=== PATIENT | female | born 1950 | race Caucasian/White ===

== ENCOUNTER 2022-05-27 11:56 | Outpatient (CLI) | payer MEDICARE, OTHER, SELFPAY ==
--- NOTE | 2022-05-27 10:45 | DI.RAD_ITS ---
Exam(s) XR KNEE LT 3V AP,LAT,NANCY EXAM: XR KNEE LT 3V AP,LAT,NANCY CLINICAL HISTORY: L knee pain. TECHNIQUE: 2D digital imaging was performed of the left knee. Four images were obtained. Merchant, AP, lateral and PA tunnel views were obtained. COMPARISON: No exams were available for comparison FINDINGS: BONES: No acute fracture is present. No bony destructive lesion is seen. There is an enthesophyte at the superior patella. JOINTS: There is moderate narrowing of the medial femoral tibial joint and mild narrowing of the arana llofemoral joint. There is tricompartment periarticular spurring present. No joint effusion is seen . SOFT TISSUE: Normal. IMPRESSION: There are moderate degenerative changes of the left knee. DATA REPOSITORY: RADIATION DOSE DELIVERED:
--- NOTE | 2022-05-27 11:25 | DI.RAD_ITS ---
Exam(s) XR HIP LT COMPLETE AP PELVIS EXAM: XR HIP LT COMPLETE AP PELVIS CLINICAL HISTORY: L hip pain. TECHNIQUE: 2D digital imaging was performed of the left hip. Two views were obtained. AP pelvis an d lateral left hip views were obtained. COMPARISON: CR Hip - 2 Views from 12/13/2016 FINDINGS: BONES: No acute fracture is present. No bony destructive lesion is seen. JOINTS: The patient has a prior right total hip replacement. There are advanced degenerative changes of the left hip which has progressed since 12/13/2016. There is loss of the superior joint space. S ubchondral sclerosis and cysts are seen across the joint. Hypertrophic changes are seen at the aceta bulum. SOFT TISSUE: Normal. IMPRESSION: Advanced degenerative changes of the left hip which have progressed since 2017. DATA REPOSITORY: RADIATION DOSE DELIVERED:
== END 2022-05-27 11:57 | disposition home or self-care (01) ==
LOC: DIORS 11:57
PROVIDERS: PCP Nurse Practitioner; Referring Provider Nurse Practitioner; Visit Provider Physician Assistant
DX: M17.12 Unilateral primary osteoarthritis, left knee (principal); M16.12 Unilateral primary osteoarthritis, left hip
CPT/HCPCS: 20610; 73562; 99203; 73502; J1040

== ENCOUNTER 2022-06-02 03:10 | Outpatient (CLI) | payer MEDICARE, OTHER, SELFPAY ==
[2022-06-02 11:41] LABS: HCT 36.8 % (36.0-46.0); HGB 12.8 g/dL (11.2-15.7); MCH 32.6 pg (27.0-33.0); MCHC 34.8 % (32.0-36.0); MCV 94 fL (80-95); MPV 7.7 fL (8.0-11.0); Platelet Count 195 10^3/uL (130-400); RBC 3.93 10^6/uL (3.93-5.22); RDW 11.2 % (11.7-14.6); RDW-SD 38.1 fL; WBC 9.12 10^3/uL (4.4-10.8)
[2022-06-02 12:02] LABS: Anion Gap 1.4 mmol/L (3-11); BUN 37 mg/dL (7-18); CO2 29.6 mmol/L (21.0-32.0); CREATININE 1.3 mg/dL (0.55-1.02); Calcium 9.8 mg/dL (8.5-10.1); Chloride 97 mmol/L (98-107); Estimated GFR 44.24 (mL/min/1.73m2); Glucose 92 mg/dL (74-106); Potassium 4.1 mmol/L (3.5-5.1); Sodium 128 mmol/L (136-145)
== END 2022-06-02 03:11 | disposition home or self-care (01) ==
PROVIDERS: PCP Nurse Practitioner; Visit Provider Student in an Organized Health Care Education/Training Program
DX: M25.552 Pain in left hip (principal); M16.12 Unilateral primary osteoarthritis, left hip; Z01.818 Encounter for other preprocedural examination; Z01.812 Encounter for preprocedural laboratory examination
CPT/HCPCS: 36415; 80048; 85027

== ENCOUNTER 2022-06-08 08:53 | Day surgery (SDC) | payer MEDICARE, OTHER, SELFPAY ==
--- NOTE | 2022-06-07 16:08 | W.ANESPRE ---
General Info Date of Service Date Performed: 06/08/22 Height: 5 ft 3 in Weight: 80 kg Body Mass Index (BMI): 31.2 Surgical Procedure: Operation Date: 06/08/22 11:35 Proposed Procedure Side Surgeon p Hip Total Hip Anterior, Corail Short Neck 01/23 Left Shaun Alves MD Meds Allergies and Home Medications Allergies Allergy/AdvReac Type Severity Reaction Status Date / Time No Known Drug Allergies Allergy Unverified 06/08/22 09:23 Home Medication Medication Instructions Recorded lisinopril 20 1 tab DAILY 12/04/15 mg-hydrochlorothiazide 12.5 mg tablet acetaminophen 500 mg tablet (Mapap 1,000 mg PO TID #180 tabs 12/11/15 Extra Strength) loperamide 2 mg capsule 1 cap PO PRN PRN 12/23/15 lovastatin 20 mg tablet 20 mg PO HS 03/10/22 aspirin 81 mg tablet,delayed 81 mg PO DAILY 06/07/22 release Current Visit Medications: Current Medications Generic Name Dose Route Start Last Admin Trade Name Jeanq PRN Reason Stop Dose Admin Acetaminophen 1,000 mg 06/08/22 06:00 Acetaminophen 500 Mg Tab PO 06/08/22 16:00 PREOP LIZA Celecoxib 400 mg 06/08/22 06:00 Celecoxib 200 Mg Cap PO 06/08/22 16:00 PREOP LIZA Tranexamic Acid 1,000 mg/ 60 mls @ 360 mls/hr 06/08/22 06:00 Sodium Chloride IV 06/08/22 16:00 PREOP LIZA Ringer's Solution 1,000 mls @ 80 mls/hr 06/08/22 06:00 IV 07/07/22 23:59 INFUSION LIZA Cefazolin Sodium/Dextrose 2 gm in 50 mls @ 100 mls/hr 06/08/22 06:00 Ancef Duplex IVPB 06/08/22 16:00 PREOP LIZA IV Miscellaneous Supplies 1 each 06/08/22 06:00 Iv Access IV 07/07/22 23:59 DIRECTED LIZA Sodium Chloride 0 ml 06/08/22 06:00 Normal Saline Flush 10 Ml Syr IV 07/07/22 23:59 PRN PRN Sodium Chloride 0 ml 06/08/22 06:00 Normal Saline 10 Ml Vial IJ 07/07/22 23:59 DIRECTED PRN Sterile Water 0 ml 06/08/22 06:00 Water,Injection,Sterile 10 Ml Vial IJ 07/07/22 23:59 DIRECTED PRN PFSH Active Problems Active Problems: Problem Status Onset Code Primary osteoarthritis of left hip M16.12 Osteoarthritis of left knee M17.12 Mixed hyperlipidemia E78.2 Benign essential hypertension I10 Acute blood loss as cause of postoperative anemia D62 Medical History Medical History Annular psoriasis Primary osteoarthritis of right hip (01/09/16) Surgical History Surgical History History of cataract surgery History of colonoscopy History of total right hip replacement Tobacco Smoking/Tobacco Use Status: Former Tobacco Use Substance Use Substance use: Never Substance use type: does not use Vital Signs and Lab Results Vital Signs Most Recent Vital Signs in EMR: Temp Pulse Resp BP Pulse Ox 36.4 C L 78 16 165/69 H 96 06/08/22 09:00 06/08/22 09:00 06/08/22 09:00 06/08/22 09:00 06/08/22 09:00 Lab Results Blood Type / Crossmatch: No Data to Display Complete Blood Count: White Blood Count 9.12 10^3/uL (4.4-10.8) 06/02/22 11:30 Red Blood Count 3.93 10^6/uL (3.93-5.22) 06/02/22 11:30 Hemoglobin 12.8 g/dL (11.2-15.7) 06/02/22 11:30 Hematocrit 36.8 % (36.0-46.0) 06/02/22 11:30 Platelet Count 195 10^3/uL (130-400) 06/02/22 11:30 Complete Metabolic Panel: Sodium 128 mmol/L (136-145) L 06/02/22 11:30 Potassium 4.1 mmol/L (3.5-5.1) 06/02/22 11:30 Chloride 97 mmol/L (98-107) L 06/02/22 11:30 Carbon Dioxide 29.6 mmol/L (21.0-32.0) 06/02/22 11:30 BUN 37 mg/dL (7-18) H 06/02/22 11:30 Creatinine 1.3 mg/dL (0.55-1.02) H 06/02/22 11:30 Est GFR (CKD-EPI 2020) 44.24 (mL/min/1.73m2) 06/02/22 11:30 Calcium 9.8 mg/dL (8.5-10.1) 06/02/22 11:30 Glucose 92 mg/dL (74-106) 06/02/22 11:30 Liver Function Panel: No Data to Display Coagulation Panel: No Data to Display Cardiac Panel: No Data to Display Arterial Blood Gas: No Data to Display Venous Blood Gas: No Data to Display Pancreas Panel: No Data to Display Thyroid Panel: No Data to Display Infectious Disease: No Data to Display Blood Cultures: No Data to Display Toxicology Panel: No Data to Display Anesthesia Assessment and Plan Anesthesia History Personal History: No History of Anesthesia Complications Family History: No Family History of Anesthesia Complications Exercise Tolerance Exercise Tolerance: Metabolic Equivalents>4 Cardiac & Pulmonary Exam Cardiac Exam: Normal S1/S2 Heart Sounds Pulmonary Exam: Clear Bilateral Breath Sounds Implantable Cardiac Device Does patient have a Pacemaker or an ICD?: No Airway Exam Known Difficult Airway: No Mallampati Class: 1 Mouth Opening: Normal (> 3cm) Thyromental Distance: Greater than 3 cm Neck Range of Motion: Limited ROM Neck Circumference: Normal Teeth Condition: Normal Dentition ASA Classification ASA Score: ASA 2 Emergency Case?: No NPO Status NPO Status: NPO Clears >2 hours, Solids >8 hours Anesthesia Plan Resuscitation Status: Full Code Anesthesia Technique: Spinal Anesthesia Airway Planned: Natural Airway Monitors Used: Standard Monitors Preoperative Comments:: 71 yo female with OA for NATALIE. Sig PMHx: HTN (lisinopril, HCTZ), former smoker, denies major. Previous Anes: - NATALIE 2016: spinal with 2.5 mL 0.5% bup, prop infusion. required frequent phenyl boluses (totaling 100 mcg), a gtt was eventually started, glyco (unclear reason), brief ketamine infusion, 1 unit of PRBCs, EBL 1000 mL. Plan: preop cocktail (ordered by surgeon), spinal. Would like preop midaz
[2022-06-08] VITALS (9 sets, daily range): BP systolic 102–165; BP diastolic 33–72; PULSE 56–78; RESP 12–18; TEMP 35.9–36.4; O2SAT 96–99; BMI 31.2
[2022-06-08] MEDS: Celecoxib 200 MG CAP 400 MG PO (09:29)
[2022-06-08] MEDS: Acetaminophen 500 MG TAB 1000 MG PO (09:30)
--- NOTE | 2022-06-08 09:30 | DI.RAD_ITS ---
Exam(s) XR HIP LT IN OR EXAM: XR HIP LT IN OR CLINICAL HISTORY: TOTAL HIP. TECHNIQUE: 2D digital imaging was performed. COMPARISON: No exams were available for comparison FINDINGS: Fluoroscopy provided during left hip arthroplasty. Please see procedure report for details. Radiation exposure index: Erasmor= 2.9390mGY IMPRESSION: DATA REPOSITORY: RADIATION DOSE DELIVERED:
[2022-06-08] MEDS: Lactated Ringers 1,000 ML 80 ML IV (09:58)
[2022-06-08] MEDS: ceFAZolin 2 GM/50 ML BAG IVPB (11:03)
--- NOTE | 2022-06-08 12:16 | DSE_ITS ---
Date of service: 06/08/22 Time of Service: 12:16 DS: Diagnosis Discharge Diagnosis (1) Primary osteoarthritis of left hip: Status: Acute Discharge Plan Disposition Patient Disposition: Home Condition: Good Discharge Details Reason For Visit: Kalpana Hip Arthritis Attending Provider: Shaun Alves Primary Care Provider: Jalen Barbour Home Meds and New Rx's Prescriptions: New celecoxib 200 mg capsule 200 mg PO BID PRN (Reason: pain) Qty: 60 1RF aspirin 81 mg tablet,delayed release (DR/EC) 81 mg PO BID Qty: 60 0RF acetaminophen 500 mg tablet 1,000 mg PO Q8H PRN (Reason: pain) Qty: 90 3RF pantoprazole 40 mg tablet,delayed release (DR/EC) 40 mg PO DAILY Qty: 30 0RF oxycodone 5 mg tablet 5 mg PO Q6H PRN (Reason: Pain) Qty: 8 0RF Continued lovastatin 20 mg tablet 20 mg PO HS lisinopril-hydrochlorothiazide 1 EACH tablet 1 tab DAILY loperamide 2 MG capsule 1 cap PO PRN PRN Discontinued acetaminophen [Mapap Extra Strength] 500 MG tablet 1,000 mg PO TID Qty: 180 0RF aspirin [Aspir-81] 81 mg Tablet,Delayed Release (Dr/Ec) 81 mg PO DAILY Discharge Instructions Additional Instructions: Total Hip Discharge Instructions Activity: The most important activity is to walk. You should try to take short walks a few times a day. You have no restrictions on movement or positioning, but do not try to force what you do. You will find some stiffness and weakness with hip flexion (lifting your knee). Do not try to strengthen this too early, continue to practice walking and stairs and this will come. - Outpatient physical therapy can be helpful to help return you to a normal gait and improve your flexibility and strength. This can start around 2 weeks. For some patients, it?s not necessary. Usually this is determined at the time of discharge or at the first post-operative visit. - You should wear the SANTOS hose on both legs for 2 weeks. Dressing: Keep the surgical dressing in place for at least one week. After the first week it may be removed and replace with light gauze and tape or nothing. It may get wet after 3 days but avoid soaking the dressing. If it gets wet, just lightly pat dry. It is important to always keep some gauze between skin folds, especially when you are sitting. Spend some time with the wound exposed when you are lying flat as the incision does wrinkle onto itself. Medications: - You should take Tylenol and an anti-inflammatory Celebrex as your primary pain control medications. If the Celebrex is too expensive or not covered, please call the office for another alternative (Advil/Ibuprofen or Naproxen/Aleve). - You have been prescribed a stronger pain medication Oxycodone for breakthrough pain, take as needed as prescribed. - You have also been prescribed a stomach acid reduction agent Pantoprozole to help reduce stomach acid and reflux. - You will be taking Aspirin 81mg twice a day for DVT prevention unless instructed otherwise. - If you have constipation you should take Colace or Miralax (both [id number]). It takes most people 3-4 days to have a bowel movement. Follow-up: 2 weeks If you have any acute concerns or questions, please do not hesitate to contact the office at [phone]. You may contact Dr. Alves with any questions after hours through the hospital at [phone] or on his cell phone at [phone]. Stand Alone Forms: Anesthesia Discharge Inst., Brittany Quiroz (U) Referrals: Shaun Alves MD [ [facility] STAFF PHYSICIAN] - Equipment/Supplies: Walker Activity:: Activity as Tolerated Remove Dressings/Wound Care:: Do Not Remove Shower/Bathe:: Cover Diet:: As Tolerated Discharge Orders Discharge Orders: Discharge Order (Routine); Ordered 06/08/22 Ordered By: Shaun Alves Discharge Data Discharge Date/Time-TO BE ENTERED AT DEPARTURE: 06/08/22 15:05 DS: Summary Time Spent with Patient providing and/or coordinating discharge services: Less than 30 minutes Status at Discharge Functional status at discharge: uses cane/walker Overall status at discharge: patient is progressing back to baseline Mental Status: mental status grossly normal Speech and Movement: speech and movement normal Mood: congruent mood Affect: normal affect Exam Psych Mental Status: mental status grossly normal Speech and Movement: speech and movement normal Mood: congruent mood Affect: normal affect DS: Data Vitals/I&O Vitals and I&O: Vital Signs Temperature 36.4 C L 06/08/22 09:00 Pulse 78 06/08/22 09:00 Pulse Rhythm Regular 06/08/22 09:00 Respiratory Rate 16 06/08/22 09:00 Respiratory Depth Deep 06/08/22 09:00 Blood Pressure 165/69 H 06/08/22 09:00 Pulse Oximetry 96 06/08/22 09:00 Oxygen Delivery Method Room Air 06/08/22 09:00 Oxygen Flow Rate 0 06/08/22 09:00 Pain Level 7 06/08/22 09:00 Intake & Output 06/07/22 06/08/22 06/08/22 23:59 11:59 23:59 Intake Total 110 / 110 Balance 110 / 110 Weight 80 kg Intake: IV 110 / 110 PFSH All Active Problems (Updated 06/08/22 @ 12:17 by Shaun Alves MD) Primary osteoarthritis of left hip (Acute) s/p Anterior L NATALIE (06/08/22) Osteoarthritis of left knee (Acute) DEPO MEDROL: 05/27/2022 Mixed hyperlipidemia (Acute) Benign essential hypertension (Acute) Acute blood loss as cause of postoperative anemia (Acute) Medical History (Updated 06/08/22 @ 12:17 by Shaun Alves MD) Annular psoriasis Primary osteoarthritis of right hip (01/09/16) Surgical History History of cataract surgery History of colonoscopy History of total right hip replacement Social History Smoking/Tobacco Use Status: Former Tobacco Use Smoking risk assessment performed?: Yes Drug use: Never Substance use type: does not use Do you feel safe at home: Yes Do you feel safe in your relationship?: Yes Time Spent with Patient Time Spent with Patient: <45 minutes Time was spent: preparing to see the patient(eg.review tests) and ordering medications,tests, procedures
--- NOTE | 2022-06-08 13:02 | W.ANESPOSTOP ---
Postoperative Evaluation Date, Time and Location Date Performed: 06/08/22 Time Performed: 13:02 Patient Location: PACU Vital Signs Most Recent Imported Vital Signs: Most Recent Vital Signs Temp Pulse Resp BP Pulse Ox 36.0 C L 58 L 15 142/59 H 99 06/08/22 12:46 06/08/22 12:46 06/08/22 12:46 06/08/22 12:46 06/08/22 12:46 Pain Score Most Recent Pain Score: Most Recent Pain Score Pain Level 0 06/08/22 12:46 Assessment Mental Status: Awake (Alert & Oriented to Patient Baseline) Airway and Respiratory Function: Patent airway with normal (patient baseline) respiratory exam Cardiovascular Function: Hemodynamically Stable Hydration Status: Adequately Hydrated Nausea & Vomiting: No Nausea or Vomiting Pain: Pt. Denies Any Pain Peripheral Nerve Block: Patient did not receive a nerve block Postoperative Comments:: Spinal waning (able to lift legs off bed), on small amount of phenyl (almost off).
--- NOTE | 2022-06-08 13:40 | PT.INIE ---
Date of service: 06/08/22 Time of Service: 13:40 PT Notes Visit Reasons: L Hip Arthritis Physical Therapy Day Surgery Initial Evaluation Date: 06/08/2022 Referring Doctor: Shaun Alves MD PT Orders: PT CONSULT: S/P Ortho Surgery Precautions: WBAT on the left LE with AD. Patient Profile/Admitting Diagnosis: Antonia is a 71-year-old female with primary osteoarthritis of the left hip and is status post left anterior total hip arthroplasty on postoperative day 0. PMHX: All Active Problems?(Updated 05/28/22 @ 13:07 by BROOKLYN Feliciano) Primary osteoarthritis of left hip (Acute) Osteoarthritis of left knee (Acute) DEPO MEDROL: 05/27/2022 Mixed hyperlipidemia (Acute) Benign essential hypertension (Acute) Acute blood loss as cause of postoperative anemia (Acute) Medical History?(Updated 05/28/22 @ 13:07 by BROOKLYN Feliciano) Annular psoriasis Primary osteoarthritis of right hip (01/09/16) Surgical History?(Updated 03/10/22 @ 11:19 by Igor Ambriz RN) History of cataract surgery History of colonoscopy History of total right hip replacement Social History/Home Situation: Lives with in a private home with three steps to enter. 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 Uses a FWW indoors, none outdoors beacuses shes states she was always inside the bus driving and di not need to use the walker too much. Equipment Owned/DME: FWW Subjective: States that she is glad that she finally had the surgery. Denies headache and chest pain htorughout. Did report having mild lighteadedness that did not affect distance walked. Reports cramping pain in her right calf area but nothing on the L side. Per Nurse May, patient had a hypotensive episode in the PACU earlier. Objective: General Observation: Mepilex Ag over surgical incision. TEDS to B legs. Mental Status: Alert and oriented x 4 Pain: 3/10 at rest in the L hip and L knee, much improved with walking at 1/10; denies back pain ROM: Right Lower Extremity: Hip flexion WFL. Hip abduction WFL. Knee flexion WFL. Ankle dorsiflexion WFL. Ankle plantarflexion WFL. Left Lower Extremity: Hip flexion WFL. Hip abduction WFL. Knee flexion WFL. Ankle dorsiflexion WFL. Ankle plantarflexion WFL. Strength: Right Lower Extremity: Hip flexors 5/5. Hip abductors 5/5. Knee flexors 5/5. Knee extensors 5/5. Ankle dorsiflexors 5/5. Ankle plantarflexors 5/5. Left Lower Extremity:Hip flexors 4/5. Hip abductors 4/5. Knee flexors 5/5. Knee extensors 4/5. Ankle dorsiflexors 5/5. Ankle plantarflexors 5/5. Sensation: Intact as to pain and light pressure in B LE Bed Mobility/Transfers: Supine to sit stand by assist Sit to stand contact guard assist Stand to sit stand by assists Bed to chair stand by assist Gait: 150 feet using FWW with step-through gait pattern, mild ligheadedness resolved with walking. Stand by assist provided. Stairs: Up and down 6 x 4-inch steps and 4 x 6-inch steps while holding onto B rails for support with step-to gait pattern requiring only stand by assist. Balance: Static Sitting: Normal Dynamic Sitting: Normal Static Standing: Fair Dynamic Standing: Fair Special Tests: Mobility Limitations Standardized Measure [facility] AM-PAC 6 clicks Basic Mobility Inpatient Short Form: Raw Score: 23 CMS Score: 11% deficit Informed Consent/Education: Patient instructed in purpose of PT consult. Packet containing NATALIE exercise protocol has been given to patient. Education and training on initial set of exercises that can be done at home have been completed with patient. Assessment: Patient requires the use of FWW for all mobility ADL performance to maximize independence and reduce fall risk. Patient presents with clinical signs and symptoms consistent with current/admitting diagnoses that have resulted to mobility limitations, gait instability, generalized weakness, and impairment of motor control as demonstrated by the following impairment level findings: 1. Decreased strength to left hip major muscle groups 2. Impaired standing balance Impairments are contributing to the following functional limitations: 1. Inability to safely ambulate without assistive device 2. Increase completion time for mobility ADL performance 3. Increased fall risk Patient is assessed as a 73875 moderate complexity based on the following: History: 71-year-old female with impairment level findings, functional limitations, and past medical history as indicated above Examination: Demonstrable impairment in strength, balance, and mobility level with underlying impairments and functional limitations as documented above Presentation: Evolving Decision Makin moderate complexity THERA EX: Supine glutes sests x 5 Supine quads sests x 5 Supine heel slides x 5 Supine ankle DF/PF x 10 Seated LAQ x 5 Goals: N/A. PT evaluation and 1-2 treatment sessions only for functional mobility training using recommended AD and for HEP instruction. Plan of Care/Treatment Plan: N/A. PT evaluation and 1-2 treatment session only for functional mobility training using recommended AD and for HEP instruction. DISCHARGE RECOMMENDATIONS: Home when medically cleared by orthopedic surgeon. Recommend outpatient PT services to optimize functional mobility outcomes and facilitate return to independent community ambulation and vocational activities without an assistive device. TREATMENT CODE/TIME: 37754 x 20 minutes, 72648 x 15 minutes beginning at 13:40 PM. Thank you for the opportunity to participate in the care of this patient. Lillie Schaefer PT, DPT, CLT [facility] [place], [place]
[2022-06-08] MEDS: oxyCODONE 5 MG TAB PO (13:45)
--- NOTE | 2022-06-08 16:56 | W.PM.OP ---
Date of service: 06/08/22 Time of Service: 12:20 Operative Note Operative Note DATE OF PROCEDURE: 06/08/22 PRE-OP DIAGNOSIS: Left Hip Arthritis POST-OP DIAGNOSIS: same PROCEDURE: Left Anterior Total Hip Arthroplasty with Intraoperative Navigation SURGEON: Shaun Alves RV MECHANIC: Sussy Dubose ANESTHESIA TYPE: Spinal Refer to Anesthesia Record ESTIMATED BLOOD LOSS: 100 PATHOLOGY: none sent TOURNIQUET TIME: 0 COMPLICATIONS: None Patient was transported to: PACU Patient's condition: stable Implants: 1. Depuy [place] Acetabular Component, 52mm 2. Depuy Acetabular Liner, 08b73sm 3. Depuy Corail Short Neck Collared Femoral Stem, Size 9 4. Depuy Altrx Ceramic Femoral Head, Size 36+5mm Indications: I have seen Loly in clinic for symptoms of hip arthritis, confirmed with radiographic findings. She has exhausted nonoperative methods and was having significant limitations in daily function and desired better function and less pain. I discussed the technical details of a hip replacement. I explained the risks of the procedure to include, but not limited to, bleeding, infection, pain, stiffness, fracture, damage to nerves and vessels, damage to muscles and tendons, loosening, instability, leg length inequality, need for repeat procedure, blood clot and cardiopulmonary demise. Despite these risks, Loly elected to proceed. Findings: There was significant signs of arthritis throughout the hip with notable deformity of the femoral head and a large floor osteophyte. Procedure Description: Loly was greeted in the preoperative holding area where the correct side was identified and marked. The consent was reviewed with the patient and signed. The history and physical was updated. All questions were answered. She was taken back to the operating room. A spinal anesthestic was then administered. The feet were wrapped with cast padding and Coban and then placed into the boot liners and then into the boots. Care was taken to protect the skin and make sure the heels were fully down and the boots were stable. The patient was then positioned onto the HANA table. Both legs were held in a neutral position. SCDs were applied. The patient was then slid down onto a peroneal post. Prophylactic antibiotics in the form of Cefazolin were administered. 1g of Tranxemic Acid was given intravenously within 30 minutes of incision. The left leg was then prepped with Chloraprep and draped in a standard fashion. A second prep with Chloraprep was performed prior to placement of a shower-curtain type drape with Iodine impregnated skin protection. A timeout to confirm correct identity, side and site, procedure, allergies, anesthesia, and medical concerns was performed. An obliquely oriented incision was made starting lateral to the ASIS and running distal over the Tensor Fascia Kena (TFL) muscle belly toward the fibular head, approximately 10cm. The skin and soft tissue was dissected sharply, through Roopa?s fascia, and to the fascia of the TFL. With the fascia and superior border of the IT band identified, the fascia was incised with a new knife just above any perforators from the IT band. The TFL muscle belly was bluntly dissected away from the fascia and moved laterally. The fat between TFL and rectus was identified to ensure the dissection was not within the TFL. Blunt dissection created space between abductors and the capsule and retractor was placed over the lateral femoral neck. The fibers of the rectus femoris tendon were identified and these were freed from the anterior capsule. A second cobra retractor was placed around the medial femoral neck. The TFL was further retracted laterally to show the deep fascia. Careful dissection through this layer identified three main crossing vessels of the lateral femoral circumflex. These were cauterized in multiple locations and then cut without any noticeable bleeding. The TFL was further released bluntly from the deep fascia to expose anterior hip capsule and fat The [place] orthopaedic retractor was then placed beneath the TFL and against sartorius and medial soft tissues to protect and retract the soft tissues. A T-capsulotomy was then performed starting at the superior lateral acetabulum and moving distally to the intertrochanteric ridge. These capsular flaps were tagged with a No. 1 Ethibond and elevated from within. The capsular flaps were released to the shoulder of the lateral neck and to the lesser trochanter to give excellent visualization of the proximal femur. A neck osteotomy was performed using an oscillating saw based on preoperative templates. This cut started in the shoulder and of the lateral neck and exited medially. The saw was at all times directed medially to avoid injury to the greater trochanter. Gross traction was applied to the leg and the osteotomy opened. The femoral head was removed with a corkscrew, making sure to protect the TFL on its exit. Traction was released after head removal. This was measured on the back table to determine the starting reamer size. Portions of the rectus obscuring visualization were minimally elevated off the superior acetabulum. An anterior retractor was placed over the anterior wall between capsule and labrum and attached to the Gripper retraction system. The femur was rotated to 90 degrees and medial capsule was fully released until the lesser trochanter was palpable and visible; the femur was returned to 30 degrees. A posterior retractor was placed similarly between capsule and labrum. This provided excellent visualization. The contents of the cotyloid fossa were removed with electrocautery and the labrum was removed with a knife. There was a notable floor osteophyte. There was significant chondromalacia of the superior acetabulum. Acetabular reaming began with a 48mm reamer. This first reaming was directed anterior to posterior and medial to get down to the true floor. This was inspected and reamed until the true floor was reached. The anterior retractor was then released and entry and exit was provided by traction on the capsular flaps. I then reamed sequentially up to a 52mm reamer where good fit was obtained. The larger reamers were oriented based on anatomical reference of the anterior and lateral durbin to ensure proper abduction and anteversion. Positioning and size was confirmed with the fluoroscopy. A 52mm Depuy [place] acetabular component was selected. The acetabulum was reamed around the periphery with the selected acetabular size to prevent a rim fit. The deep tissues were irrigated. The acetabular component was then impacted in a position of about 40-45 degrees of abduction and 15-20 degrees of anteversion, using the patient?s anatomy as the ultimate landmark. Fluoroscopy was used to confirm this. There was excellent respiratory tech of the acetabular component and the inserting handle was removed. The acetabular liner, Depuy 69x26ym polyethylene liner, was inserted and lined up with the tines of the acetabular component. There was no soft tissue interposition. The liner was then impacted into position and confirmed to be well-seated. A portion of the lupe-articular cocktail was then injected around the acetabulum into the capsule and periosteum. This cocktail consisted of 123mg of Ropivacaine, 0.25mg of Epinephrine, 0.04mg of Clonidine, and 15mg of Ketorolac, diluted to 50cc. The leg was rotated to 120 degrees. Any remaining medial capsule was released until the lesser trochanter was easily palpable. A retractor was placed medially. The lateral capsule was further released into the shoulder to allow access to the greater trochanter. A Stone retractor was placed over the greater trochanter which allowed the trochanter to flip in front of the capsule for excellent exposure. The leg was brought down into maximal extension and 20 degrees of adduction while ensuring there was no impingement on the acetabulum. Any remnant capsule within the trochanter was released. Piriformis and obturator externis were identified and protected. There was excellent access to the proximal femur. The lateral neck remnant was removed with a rongeur. A blunt canal probe was used to identify the canal and trajectory for later broaching. A box osteotome initiated the broach course. A small curved rasp and a curved curette were used to work laterally. Broaching then began with a size 8 Corail broach. This was inserted manually around the trochanter and into the canal before mallet blows. The broach was seated to a few millimeters below the cut level based on the neck cut and the preoperative template. Sequential broaching was continued with the [employer] pneumatic broaching device until a tight fit was obtained with good rotational control of the femur. A trial short neck was inserted along with a +5 trial head. The leg was brought out of extension and adduction and then reduced with traction and internal rotation. The leg was stable anteriorly in a position of 30 degrees of extension and 90 degrees of external rotation. Fluoroscopy was used to ensure there was no fracture and the stem was seated well. Leg lengths were checked with an AP pelvis and pelvic reference points. DEUS navigation system was used to confirm appropriate positioning and leg length and offset. Once content with the desired offset and leg lengths, the leg was brought back into extension, external rotation and adduction. The periosteum and surrounding tissue was injected with remaining portion of the lupe-articular cocktail. The proximal femur was irrigated as well as the deep tissues. The Depuy [place] short neck collared stem, size 9, was then manually inserted into the proximal femur making sure to control rotation. It was then malleted into position with light blows, giving breaks to allow bone expansion and decrease risk of fracture. The selected Depuy Altrx Ceramic Head, size 36+5mm, was then placed onto the clean and dry trunnion and secured with impaction onto the tapered fit. The leg was brought back out of extension and adduction and reduced with traction and internal rotation. Stability was confirmed with no shuck at 90 degrees of external rotation and 30 degrees of extension. No impingement through range of motion arc. Final x-ray images were obtained with fluoroscopy to confirm adequate positioning and no intraoperative fracture. The deep tissues were thoroughly irrigated with Surgiphor, betadine solution. This was allowed to sit in the wound for 3 minutes before being thoroughly irrigated out with normal saline. The capsule was then reapproximated with the previously placed Ethibond sutures. The TFL fascia was finally closed with a No. 2 Stratafix, barbed suture. Deep tissues were then reapproximated with 0 Vicryl and a running 2-0 Vicryl. The skin was closed with a running 4-0 Monocryl in a subcuticular fashion. This was reinforced with skin glue. A Mepilex silver dressing was applied. At the end of the case, all counts were correct. Loly was transferred to the hospital bed without difficulty and suffering no apparent complication. Loly has a good prognosis. Physical therapy will start today and without restrictions, weight-bearing as tolerated. Aspirin 81mg BID will be used for DVT prophylaxis.
== END 2022-06-08 15:05 | disposition home or self-care (01) ==
PROVIDERS: PCP Nurse Practitioner; Visit Provider Student in an Organized Health Care Education/Training Program
PROC: (CPT 27130; principal; 2022-06-08 11:15)
DX: M16.12 Unilateral primary osteoarthritis, left hip (principal)
CPT/HCPCS: 20985; 27130; C1776; 97162; 97530; 73501; J0690; J1100; J2250; J2370; J2405

== ENCOUNTER 2022-06-21 13:23 | Outpatient (CLI) | payer MEDICARE, OTHER, SELFPAY ==
--- NOTE | 2022-06-21 13:00 | DI.RAD_ITS ---
Exam(s) XR HIP LT COMPLETE AP PELVIS EXAM: XR HIP LT COMPLETE AP PELVIS CLINICAL HISTORY: 1st post op L NATALIE. TECHNIQUE: 2D digital imaging was performed. Two images were obtained. AP, lateral and oblique view s were obtained. COMPARISON: CR XR HIP LT COMPLETE AP PELVIS from 05/27/2022 XA XR HIP LT IN OR from 06/08/2022 FINDINGS: BONES: There are stable post operative changes present. No fracture or dislocation. JOINTS: The orthopedic hardware is in good position. No evidence of hardware loosening. SOFT TISSUE: Normal. IMPRESSION: Stable postoperative changes. DATA REPOSITORY: RADIATION DOSE DELIVERED:
== END 2022-06-21 13:24 | disposition home or self-care (01) ==
LOC: DIORS 13:24
PROVIDERS: PCP Nurse Practitioner; Referring Provider Nurse Practitioner; Visit Provider Student in an Organized Health Care Education/Training Program
DX: Z96.642 Presence of left artificial hip joint (principal); Z47.1 Aftercare following joint replacement surgery
CPT/HCPCS: 73502

== ENCOUNTER → 2022-07-19 09:32 | Outpatient (BNVA) | payer MEDICARE, OTHER, SELFPAY | PROVIDERS: PCP Nurse Practitioner; Referring Provider Nurse Practitioner | DX: Z47.1 Aftercare following joint replacement surgery (principal); Z96.642 Presence of left artificial hip joint ==

== ENCOUNTER 2022-12-13 15:56 | Outpatient (REF) | payer MEDICARE, OTHER, SELFPAY ==
[2022-12-13 19:32] LABS: ALT 30 U/L (14-59); AST 23 U/L (15-37); Albumin 3.9 g/dL (3.4-5.0); Alkaline Phosphatase 43 U/L (46-116); Anion Gap 8.3 mmol/L (3-11); BUN 21 mg/dL (7-18); Bilirubin, Total 0.4 mg/dL (0.2-1.0); CO2 26.7 mmol/L (21.0-32.0); Calcium 9.2 mg/dL (8.5-10.1); Chloride 96 mmol/L (98-107); Estimated GFR 60.23 (mL/min/1.73m2); Glucose 92 mg/dL (74-106); Potassium 3.7 mmol/L (3.5-5.1); Sodium 131 mmol/L (136-145); Total Protein 7.4 g/dL (6.4-8.2)
== END 2022-12-13 15:57 | disposition home or self-care (01) ==
LOC: NCHCN 15:56
PROVIDERS: PCP Nurse Practitioner; Visit Provider Nurse Practitioner Family
DX: I10 Essential (primary) hypertension (principal); E78.70 Disorder of bile acid and cholesterol metabolism, unspecified
CPT/HCPCS: 80053

== ENCOUNTER → 2023-04-05 02:29 | Outpatient (CLI) | payer MEDICARE, OTHER, SELFPAY ==
--- NOTE | 2023-04-05 07:49 | DI.MAMMO_ITS ---
Exam(s) MAMMO SCREENING EXAM: MAMMO SCREENING CLINICAL HISTORY: SCREENING, Z12.31 TECHNIQUE: Bilateral full field digital CC and MLO mammographic images were obtained with 3D tomosyn thesis and utilizing computer aided detection (CAD). COMPARISON: Available for comparison. FINDINGS: Masses/Architectural Distortion: None seen. Microcalcifications: No suspicious pleomorphic-type are seen. Skin Thickening/Nipple Retraction: None. IMPRESSION: 1. No significant interval change with no specific features of malignancy noted. 2. Unless there is more urgent need, screening mammography is recommended, as per [place] [employer] guidelines. BI-RADS Category 1 - Negative Breast Density - Category A - Almost entirely fatty Breast density category C or D implies that the patient has dense breast tissue. Dense breast tissue is very common and is not abnormal but dense breast tissue can make it harder to find cancer on a ma mmogram. Also, dense breast tissue may increase their breast cancer risk. This information about the result of the mammogram report was provided to the patient to raise their awareness. Use this report when you speak with the patient about their risks for breast cancer, which includes their family hist ory. At that time, you may recommend for more screening tests (Ultrasound or MRI) as they might be us eful based on their risk. A negative radiographic report should not delay biopsy if a dominant or clinically suspicious mass is present. Up to ten percent of cancers are not identified on mammography. A negative report may reinforce clinical impression. Adenosis and dense breasts may obscure an underlying neoplasm. False positive reports average 6 to 10%. Patient will receive a letter notifying them of these results.
== END ==
PROVIDERS: PCP Nurse Practitioner; Visit Provider Nurse Practitioner Family
DX: Z12.31 Encounter for screening mammogram for malignant neoplasm of breast (principal)
CPT/HCPCS: 77063; 77067

== ENCOUNTER 2023-07-11 15:11 | Outpatient (CLI) | payer MEDICARE, OTHER, SELFPAY ==
--- NOTE | 2023-07-11 13:00 | DI.RAD_ITS ---
Exam(s) XR HIP LT AP LAT ONLY EXAM: XR HIP LT AP LAT ONLY CLINICAL HISTORY: annual f/u L NATALIE. TECHNIQUE: 2D digital imaging was performed. Two views. COMPARISON: CR XR HIP LT COMPLETE AP PELVIS from 06/21/2022 FINDINGS: BONES: No acute fracture is present. No bony destructive lesion is seen. JOINTS: No dislocation present. No change in alignment of the left hip prosthesis. SOFT TISSUE: Normal. IMPRESSION: Stable appearance of left hip prosthesis. DATA REPOSITORY: RADIATION DOSE DELIVERED:
== END 2023-07-11 15:12 | disposition home or self-care (01) ==
LOC: DIORS 15:12
PROVIDERS: PCP Nurse Practitioner Family; Visit Provider Student in an Organized Health Care Education/Training Program
DX: Z96.642 Presence of left artificial hip joint (principal); Z47.1 Aftercare following joint replacement surgery
CPT/HCPCS: 99213; 73502

== ENCOUNTER 2024-04-13 13:23 | Outpatient (REF) | payer MEDICARE, OTHER, SELFPAY ==
[2024-04-13 14:27] LABS: Abs Immature Grans 0.02 10^3/uL (0.0-0.06); Absolute Basophil Count 0.07 10^3/uL (0.0-0.2); Absolute Lymphocyte Count 2.22 10^3/uL (1.2-3.4); Absolute Monocyte Count 0.63 10^3/uL (0.1-0.8); Absolute Neutrophil Count 5.17 10^3/uL (1.2-6.7); Basophils % 0.8 %; Eosinophils % 5.8 %; HCT 39.8 % (36.0-46.0); HGB 13.8 g/dL (11.2-15.7); Immature Grans % 0.2 %; Lymphocytes % 25.8 %; MCH 32.7 pg (27.0-33.0); MCHC 34.7 % (32.0-36.0); MCV 94 fL (80-95); MPV 8.3 fL (8.0-11.0); Monocytes % 7.3 %; Neutrophils % 60.1 %; Platelet Count 190 10^3/uL (130-400); RBC 4.22 10^6/uL (3.93-5.22); RDW 12.4 % (11.7-14.6); RDW-SD 42.8 fL; WBC 8.61 10^3/uL (4.4-10.8)
[2024-04-13 14:40] LABS: ALT 28 U/L (14-59); AST 22 U/L (15-37); Albumin 4.1 g/dL (3.4-5.0); Alkaline Phosphatase 54 U/L (46-116); Anion Gap 7.1 mmol/L (3-11); BUN 22 mg/dL (7-18); Bilirubin, Total 0.67 mg/dL (0.2-1.0); CO2 27.9 mmol/L (21.0-32.0); CREATININE 1.3 mg/dL (0.55-1.02); Calcium 9.4 mg/dL (8.5-10.1); Chloride 102 mmol/L (98-107); Estimated GFR 43.69 (mL/min/1.73m2); Glucose 107 mg/dL (74-106); Sodium 137 mmol/L (136-145)
[2024-04-13 14:44] LABS: Hemoglobin A1C 5.3 % (<5.7)
== END 2024-04-13 13:24 | disposition home or self-care (01) ==
LOC: NCHCN 13:23
PROVIDERS: Visit Provider Nurse Practitioner Family
DX: I10 Essential (primary) hypertension (principal)
CPT/HCPCS: 80053; 83036; 85025

== ENCOUNTER 2024-07-11 08:44 | Outpatient (REF) | payer MEDICARE, OTHER, SELFPAY ==
[2024-07-11 16:26] LABS: ALT 35 U/L (14-59); AST 18 U/L (15-37); Albumin 4.1 g/dL (3.4-5.0); Alkaline Phosphatase 50 U/L (46-116); Anion Gap 6.4 mmol/L (3-11); BUN 18 mg/dL (7-18); CO2 29.6 mmol/L (21.0-32.0); CREATININE 1.1 mg/dL (0.55-1.02); Calcium 9.2 mg/dL (8.5-10.1); Calculated LDL 86 mg/dL (<100); Chloride 97 mmol/L (98-107); Cholesterol 189 mg/dL (<200); Estimated GFR 53.39 (mL/min/1.73m2); Glucose 103 mg/dL (74-106); HDL Cholesterol 78 mg/dL (40-60); Potassium 4.4 mmol/L (3.5-5.1); Sodium 133 mmol/L (136-145); Total Protein 7.4 g/dL (6.4-8.2); Triglyceride 126 mg/dL (<150)
== END 2024-07-11 08:45 | disposition home or self-care (01) ==
LOC: NCHCN 08:44
PROVIDERS: Visit Provider Nurse Practitioner Family
DX: E78.5 Hyperlipidemia, unspecified (principal); I10 Essential (primary) hypertension
CPT/HCPCS: 80053; 80061

== ENCOUNTER 2024-08-04 16:45 | Observation (INO) | payer MEDICARE, OTHER, SELFPAY ==
[2024-08-04] VITALS (30 sets, daily range): BP systolic 112–168; BP diastolic 39–82; PULSE 79–106; RESP 12–31; TEMP 36.5; O2SAT 72–99
--- NOTE | 2024-08-04 16:45 | RT.EKG_ITS ---
APPROVED REPORT Exam: Resting ECG Reason for Exam: SOB Patient Location: E HR:75 bpm ECG Measurements Heart Rate 75 AXIS OR 177 P 55 QRSd 82 QRS 61 QT 392 T 59 QTc 439 Conclusion Sinus rhythm...normal P axis, V-rate 60- 99
--- NOTE | 2024-08-04 17:03 | ED.GENADUL_ITS ---
Discharge Plan Disposition Patient Disposition: Admit to [facility] Condition: Stable Discharge Details Clinical Impression: Acute hypoxic respiratory failure, Right lower lobe pneumonia Primary Care Provider: Unknown,Unknown ED Provider: Corey Mccall Home Meds and New Rx's Prescriptions: No Action lovastatin 20 mg tablet 20 mg PO HS lisinopril-hydrochlorothiazide 1 EACH tablet 1 tab DAILY HPI General Date/Time Provider Initiated Documentation: 08/04/24 16:54 . HPI Narrative: 74 year-old female presents to ED today by POV/ambulating with a chief complaint of persistent cough, treated for pneumonia starting July 16 with antibiotics, but has never gotten fully better- with onset worsening over the past few days. Patient was 72% SpO2 in triage. Quality described as cough, shortness of breath, wheezing, dizziness with activity, no radiation to chest pain, hemoptysis, nausea/vomiting, bowel/urinary changes, syncope. Severity is described as moderate to severe. Palliating factors include nothing specific- finished her ABX, taking OTC cold medicines. Provoking factors include nothing specific. Events leading up to the incident/Associated Symptoms: Patient denies COPD, quit smoking 20+ years ago. Patient not anticoagulated. Related Data Home Medications ?Medication ?Instructions ?Recorded ?Confirmed lisinopril 20 1 tab DAILY 12/04/15 07/13/23 mg-hydrochlorothiazide 12.5 mg tablet lovastatin 20 mg tablet 20 mg PO HS 03/10/22 07/13/23 Allergies Allergy/AdvReac Type Severity Reaction Status Date / Time No Known Allergies Allergy Verified 07/11/23 13:33 General Stated Complaint: RespSymp MELANIE: 2 Review of Systems All systems reviewed & are unremarkable except as noted in HPI and below Exam Narrative Exam Narrative: GENERAL APPEARANCE: Well-nourished, toxic, awake and alert, atraumatic, no acute distress. SKIN: Warm, pink, dry, intact, without rashes/lesions/ulcerations. HEAD: Normocephalic, atraumatic, normal hair distribution for gender/age. EYES: Normal conjunctiva, no exudates on lids/lashes. ENT: Nares patent, no circumoral cyanosis, no facial swelling NECK: Supple, trachea midline, painless cervical ROM. LUNGS/CHEST: Lungs - diffuse wheezes throughout with poor air movement, labored respirations, normal A/P diameter, symmetrical expansion, no chest wall deformity HEART (CV/PV): Regular rate and rhythm without murmur, no peripheral edema, no JVD. ABDOMEN: Soft, non-distended, no guarding, no tenderness. MSK: Normal ROM, no swelling/deformity to bilateral UEs or LEs, moving all extremities without weakness, no cyanosis, spine midline without tenderness, normal curvature. NEURO: Mental Status AAOx4 - alert to person, place, time, events No facial droop, no forehead involvement. Motor: No focal weakness - strength 5/5 in bilateral UEs and LEs, proximal and distal, symmetric. Sensory: sensation intact to light touch globally. Gait normal: patient ambulated without ataxia into ED room. PSYCH: euthymic, cooperative, pleasant, appropriate speech Course Vital Signs Vital signs: Vital Signs Pulse 105 H 08/04/24 16:51 Respiratory Rate 08/04/24 16:51 Blood Pressure 168/82 H 08/04/24 16:51 Pulse Oximetry 72 L 08/04/24 16:51 Pulse 105 H 08/04/24 16:54 Respiratory Rate 08/04/24 16:54 Blood Pressure 168/82 H 08/04/24 16:54 Pulse Oximetry 72 L 08/04/24 16:54 Oxygen Delivery Method Room Air 08/04/24 16:54 Oxygen Flow Rate 0 08/04/24 16:54 Pain Level 0 08/04/24 16:54 Lab/Test Results Lab/Test Results: 08/04/24 16:56 Blood Blood Culture - Pending 08/04/24 16:56 Blood Blood Culture - Pending Medical Decision Making This dictation utilizes [id number] dictation software and may contain unedited grammatical errors. 74 year-old female presents to ED today by POV/ambulating with a chief complaint of persistent cough, treated for pneumonia starting July 16 with antibiotics, but has never gotten fully better- with onset worsening over the past few days. Patient was 72% SpO2 in triage. Quality described as cough, shortness of breath, wheezing, dizziness with activity, no radiation to chest pain, hemoptysis, nausea/vomiting, bowel/urinary changes, syncope. Severity is described as moderate to severe. Palliating factors include nothing specific- finished her ABX, taking OTC cold medicines. Provoking factors include nothing specific. Events leading up to the incident/Associated Symptoms: Patient denies COPD, quit smoking 20+ years ago. Patients' medical history: Mixed hyperlipidemia, hypertension. Family and social history: No tobacco use, no IVDU, eats normal diet, lives independently. Pertinent exam findings / vital signs include severe diffuse inspiratory and expiratory wheezes, poor air movement, tripoding, benign abdomen, benign cardiac exam. Differential / pathologies of concern include pneumonia, PE, hypoxic respiratory failure, sepsis. Diagnostic studies of: -CBC, CMP, VBG, D-dimer, magnesium, troponin, BNP, COVID/flu/RSV PCR, EKG, blood cultures, CT chest PE Study. -CBC shows no leukocytosis, shows mild high eosinophils -CMP shows no actionable abnormality, mildly hyponatremic at 128 -Magnesium mildly low at 1.7, giving magnesium for shortness of breath -Serial troponins negative -BNP negative -Respiratory PCR swab negative -EKG without ischemic changes, no S1Q3T3 -CT chest shows no PE shows right lower lobe bronchitis with bronchial wall thickening likely residual pneumonia from her earlier treatment Interventions of: -IV fluids, IV ceftriaxone, IV azithromycin, 9 mL DuoNeb, 2 g magnesium, Tylenol, Toradol, IV methylprednisolone. ED Course/Assessment/Plan: 74-year-old female presents with severe respiratory distress 72% SpO2 on arrival after ambulating in, has been treated for pneumonia in early July but never got fully better, this likely treatment failure in the outpatient setting and the patient has acute hypoxic respiratory failure, she was started on oxy mask with normalization of her SpO2 immediately without further distress, she was severely wheezy and was given DuoNeb X3 as well as magnesium and steroids for shortness of breath, given Tylenol and Toradol as well as IV fluids and antibiotics, presented to the hospitalist who accepted for admission at 2044. Findings not consistent with PE, ACS, CHF. Disposition of Acute Hypoxic Respiratory Failure, Right Lower Lobe Pneumonia. Patient verbalized understanding of the plan and return to ED criteria and engaged in shared decision making. Medical Records Medical records reviewed: Yes I reviewed the patient's medical records. Imaging Data Radiologic Study: Attestation: I personally reviewed and interpreted this imaging study as follows: Imaging: CT Scan Radiologist's impression: Exam: CTA Chest With Contrast Exam date and time: 08/04/2024 6:53 PM Age: 74 years old Clinical indication: Elevated ddimer, hypoxia TECHNIQUE: Imaging protocol: Computed tomographic angiography of the chest with contrast. Exam focused on the arteries. 3D rendering (Not supervised by radiologist): MIP and/or 3D reconstructed images were created by the technologist. Contrast material: OMNIPAQUE 350; Contrast volume: 80 ml; Contrast route: INTRAVENOUS (IV); COMPARISON: No relevant prior studies available. FINDINGS: Pulmonary arteries: Normal. No pulmonary emboli. Aorta: Unremarkable. No aortic aneurysm. No aortic dissection. Lungs: Minimal right lower lobe atelectasis. There is marked right lower lobe bronchial wall thickening. No definite additional bronchial wall thickening evident. Pleural spaces: Unremarkable. No pneumothorax. No pleural effusion. Heart: Unremarkable. No cardiomegaly. No pericardial effusion. Lymph nodes: Unremarkable. No enlarged lymph nodes. Bones/joints: Unremarkable. No acute fracture. Soft tissues: Unremarkable. IMPRESSION: 1. No evidence for pulmonary embolus. 2. Right lower lobe bronchitis. Dictated and Authenticated by: Gianna Raymond MD. Lab Data Lab results reviewed: Yes I reviewed the patient's lab results. Labs: 08/04/24 18:40 Blood Blood Culture - Pending 08/04/24 16:57 Blood Blood Culture - Pending Laboratory Tests Range/Units 08/04/24 08/04/24 16:57 18:17 WBC (4.4-10.8) 10^3/uL 8.64 RBC (3.93-5.22) 10^6/uL 4.53 Hgb (11.2-15.7) g/dL 14.8 Hct (36.0-46.0) % 42.3 MCV (80-95) fL 93 MCH (27.0-33.0) pg 32.7 MCHC (32.0-36.0) % 35.0 RDW (11.7-14.6) % 11.6 L Plt Count (130-400) 10^3/uL 171 MPV (8.0-11.0) fL 7.8 L Immature Gran % % 0.2 Neutrophils % % 57.2 Lymphocytes % % 18.4 Monocytes % % 7.3 Eosinophils % % 16.0 Basophils % % 0.9 Nucleated RBC % (0.0-0.3) % 0.0 Absolute Neutrophils (1.2-6.7) 10^3/uL 4.94 Absolute Lymphocytes (1.2-3.4) 10^3/uL 1.59 Absolute Monocytes (0.1-0.8) 10^3/uL 0.63 Absolute Eosinophils (0.0-0.7) 10^3/uL 1.38 H Absolute Basophils (0.0-0.2) 10^3/uL 0.08 D-Dimer (<500) ng/mlFEU 1300 H VBG pH (7.31-7.41) 7.31 VBG pCO2 (41-51) mmHg 61 H VBG pO2 mmHg 27 VBG HCO3 (23-28) mmol/L 31 H VBG Total CO2 (24-29) mmol/L 28 VBG O2 Saturation % 45 VBG Base Excess (-2-3) mmol/L 4 H Sodium (136-145) mmol/L 128 L Potassium (3.5-5.1) mmol/L 4.8 Chloride (98-107) mmol/L 91 L Carbon Dioxide (21.0-32.0) mmol/L 31.1 Anion Gap (3-11) mmol/L 5.9 BUN (7-18) mg/dL 20 H Creatinine (0.55-1.02) mg/dL 1.0 Est GFR (CKD-EPI 2020) (mL/min/1.73m2) 59.49 Glucose (74-106) mg/dL 131 H Calcium (8.5-10.1) mg/dL 9.0 Magnesium (1.8-2.4) mg/dL 1.7 L Total Bilirubin (0.2-1.0) mg/dL 0.6 AST (15-37) U/L 31 ALT (14-59) U/L 36 Alkaline Phosphatase (46-116) U/L 53 Troponin I (<or=51) ng/L 7 < 4 NT-Pro-B Natriuret Pep (<300) pg/mL 98 Total Protein (6.4-8.2) g/dL 7.7 Albumin (3.4-5.0) g/dL 3.6 COVID-19 Source Nasopharynx SARS-CoV-2 (PCR) (Negative) Negative Influenza Type A (PCR) (Negative) Negative Influenza Type B (PCR) (Negative) Negative RSV (PCR) (Negative) Negative Quality:SDOH Health Related Social Needs: No Data to Display PFSH All Active Problems (Updated 08/04/24 @ 20:53 by BROOKLYN Arenas) Right lower lobe pneumonia (Acute) Acute hypoxic respiratory failure (Acute) History of left hip replacement (Acute 06/08/22) Osteoarthritis of left knee (Acute) DEPO MEDROL: 05/27/2022 Mixed hyperlipidemia (Acute) Benign essential hypertension (Acute) Acute blood loss as cause of postoperative anemia (Acute) Medical History (Updated 08/04/24 @ 20:53 by BROOKLYN Arenas) Primary osteoarthritis of right hip (01/09/16) Annular psoriasis Surgical History (Updated 06/21/22 @ 13:08 by Igor Ambriz RN) History of cataract surgery History of total right hip replacement History of colonoscopy Social History Smoking/Tobacco Use Status: Former Tobacco Use Smoking risk assessment performed?: Yes Drug use: Never Substance use type: does not use Do you feel safe at home: Yes Do you feel safe in your relationship?: Yes
[2024-08-04] MEDS: MAGNESIUM SULFATE 2 GM/50 ML BAG IV_INF (17:06)
[2024-08-04] MEDS: Acetaminophen 500 MG TAB 1000 MG PO (17:06)
[2024-08-04] MEDS: Ketorolac 15 MG/ML VIAL IVP (17:07)
[2024-08-04] MEDS: methylPREDNISolone SUCC 125 MG VIAL IVP (17:08)
[2024-08-04] MEDS: Albuterol/Ipratropium 3 ML UPD VIAL 9 ML UPD (17:08)
[2024-08-04 17:09] LABS: BE (Venous) 4 mmol/L (-2-3); HCO3 (Venous) 31 mmol/L (23-28); O2 Sat (Venous) 45 %; TCO2 (Venous) 28 mmol/L (24-29); pH (Venous) 7.31 (7.31-7.41); pO2 (Venous) 27 mmHg
[2024-08-04 17:11] LABS: pCO2 (Venous) 61 mmHg (41-51)
[2024-08-04 17:17] LABS: Abs Immature Grans 0.02 10^3/uL (0.0-0.06); Absolute Basophil Count 0.08 10^3/uL (0.0-0.2); Absolute Eosinophil Count 1.38 10^3/uL (0.0-0.7); Absolute Lymphocyte Count 1.59 10^3/uL (1.2-3.4); Absolute Monocyte Count 0.63 10^3/uL (0.1-0.8); Absolute Neutrophil Count 4.94 10^3/uL (1.2-6.7); Basophils % 0.9 %; HCT 42.3 % (36.0-46.0); HGB 14.8 g/dL (11.2-15.7); Immature Grans % 0.2 %; Lymphocytes % 18.4 %; MCH 32.7 pg (27.0-33.0); MCV 93 fL (80-95); MPV 7.8 fL (8.0-11.0); Monocytes % 7.3 %; Neutrophils % 57.2 %; Platelet Count 171 10^3/uL (130-400); RBC 4.53 10^6/uL (3.93-5.22); RDW 11.6 % (11.7-14.6); RDW-SD 39.4 fL; WBC 8.64 10^3/uL (4.4-10.8)
[2024-08-04 17:50] LABS: ALT 36 U/L (14-59); AST 31 U/L (15-37); Albumin 3.6 g/dL (3.4-5.0); Alkaline Phosphatase 53 U/L (46-116); Anion Gap 5.9 mmol/L (3-11); BUN 20 mg/dL (7-18); Bilirubin, Total 0.6 mg/dL (0.2-1.0); CO2 31.1 mmol/L (21.0-32.0); Chloride 91 mmol/L (98-107); Estimated GFR 59.49 (mL/min/1.73m2); Glucose 131 mg/dL (74-106); Magnesium 1.7 mg/dL (1.8-2.4); NT-proBNP 98 pg/mL (<300); Potassium 4.8 mmol/L (3.5-5.1); Sodium 128 mmol/L (136-145); Total Protein 7.7 g/dL (6.4-8.2); Troponin I 7 ng/L (<or=51)
[2024-08-04 17:59] LABS: D-Dimer 1300 ng/mlFEU (<500)
--- NOTE | 2024-08-04 18:13 | DI.CT_ITS ---
Exam(s) CT CHEST PE CTA EXAM: CT CHEST PE CTA CLINICAL HISTORY: elev d-dimer, hypoxia. TECHNIQUE: Imaging Protocol: Axial CT angiography was performed with multi-slice acquisition and mu lti-planar reconstructions as well as axial, coronal and sagittal MIP reconstructions. Computer aided detection (CAD) was utilized. CONTRAST MATERIAL: Intravenous: Omnipaque 350 Contrast volume:80 mL COMPARISON: No exams were available for comparison FINDINGS: Pulmonary Arteries: No evidence of filling defect to suggest pulmonary emboli. Mediastinum and Marianne: No dominant adenopathy or fluid collection. Pulmonary parenchyma: Patchy infiltrate seen in the inferior lateral right middle lobe. Areas of bro nchial thickening with mucous plugging noted in the right lower lobe. No dominant measurable mass. Mild emphysematous changes. Pleura: No effusion or pneumothorax. Heart: The heart is not dilated. No coronary artery calcifications are seen. Aorta: Thoracic aorta non-dilated. No dissection. Mild atherosclerotic changes. Upper abdomen: No acute findings. Bones: Unremarkable for age. Tubes, Catheters, and Lines: None Soft tissues: Unremarkable. IMPRESSION: No evidence of pulmonary embolism. Right lower lobe bronchial wall thickening and mucous plugging. Mild right middle lobe infiltrate. RADIATION DOSE DELIVERED: Total DLP DATA REPOSITORY: All CT scans at this facility are submitted to the National Radiology Data Registry (NRDR) Dose Index Registry (DIR) with the [employer] (ACR). RADIATION OPTIMIZATION: All CT scans at this facility use at least one of these dose optimization te chniques: automated exposure control; mA and/or kV adjustment per patient size (includes targeted exa ms where dose is matched to clinical indication); or iterative reconstruction.
[2024-08-04] MEDS: Omnipaque 350 MG/ML 100 ML BTL IJ (18:20)
[2024-08-04] MEDS: Normal Saline - Diluent 50 ML VIAL IJ (18:21)
[2024-08-04 18:56] LABS: Troponin I < 4 ng/L (<or=51)
[2024-08-04 19:34] LABS: COVID-19 PCR Negative (Negative); Influenza A PCR Negative (Negative); Influenza B PCR Negative (Negative); RSV PCR Negative (Negative); Source Nasopharynx
--- NOTE | 2024-08-04 20:34 | DI.VRAD_ITS ---
PROCEDURE INFORMATION: Exam: CTA Chest With Contrast Exam date and time: 08/04/2024 6:53 PM Age: 74 years old Clinical indication: Elevated ddimer, hypoxia TECHNIQUE: Imaging protocol: Computed tomographic angiography of the chest with contrast. Exam focused on the arteries. 3D rendering (Not supervised by radiologist): MIP and/or 3D reconstructed images were created by the technologist. Contrast material: OMNIPAQUE 350; Contrast volume: 80 ml; Contrast route: INTRAVENOUS (IV); COMPARISON: No relevant prior studies available. FINDINGS: Pulmonary arteries: Normal. No pulmonary emboli. Aorta: Unremarkable. No aortic aneurysm. No aortic dissection. Lungs: Minimal right lower lobe atelectasis. There is marked right lower lobe bronchial wall thickening. No definite additional bronchial wall thickening evident. Pleural spaces: Unremarkable. No pneumothorax. No pleural effusion. Heart: Unremarkable. No cardiomegaly. No pericardial effusion. Lymph nodes: Unremarkable. No enlarged lymph nodes. Bones/joints: Unremarkable. No acute fracture. Soft tissues: Unremarkable. IMPRESSION: 1. No evidence for pulmonary embolus. 2. Right lower lobe bronchitis. Dictated and Authenticated by: Gianna Raymond MD. Orderin Cal Nicole MD
[2024-08-04] MEDS: AZITHROMYCIN 500 MG in Normal Saline 250 ML 250 MG IVPB (20:54)
[2024-08-04] MEDS: cefTRIAXone 2 GM/50 ML BAG IVPB (20:54)
[2024-08-04] MEDS: Normal Saline 1,000 ML 1000 ML IV (20:55)
--- NOTE | 2024-08-04 21:59 | W.PCEDHO ---
Registration Status: Primary Language: Preferred Language: ED Information & Data Chief Complaint RespSymp 08/04/24 17:17 Chief Complaint RespSymp 08/04/24 17:04 Triage Note being treated for pneumonia 08/04/24 16:51 already, not improving, wheezing, coughing, sob Medical / Surgical History (Last Reviewed 06/08/22 @ 09:23 by May White RN) Primary osteoarthritis of right hip (01/09/16) Annular psoriasis (Last Reviewed 06/08/22 @ 09:23 by May White RN) History of cataract surgery History of total right hip replacement History of colonoscopy Most Recent Vital Signs Pulse 95 H 08/04/24 20:00 Pulse 95 H 08/04/24 20:00 Respiratory Rate 20 08/04/24 20:00 Respiratory Effort Short of Breath 08/04/24 17:19 Respiratory Depth Normal 08/04/24 17:19 Blood Pressure 112/57 L 08/04/24 18:52 Blood Pressure Mean 68 08/04/24 18:52 Pulse Oximetry 96 08/04/24 20:00 Oxygen Delivery Method Nasal Cannula 08/04/24 20:00 Oxygen Flow Rate 4 08/04/24 20:00 Pain Level 0 08/04/24 16:54 Allergies No Known Allergies Allergy (Verified 08/04/24 21:51) Active Medications Generic Name Dose Route Start Last Admin Trade Name Jeanq PRN Reason Stop Dose Admin Iohexol 100 ml 08/04/24 18:30 08/04/24 18:20 Omnipaque 350 Mg/Ml 100 Ml Btl IJ 09/03/24 23:59 80 ml DIRECTED LIZA Administration Sodium Chloride 50 ml 08/04/24 18:30 08/04/24 18:21 Normal Saline - Diluent 50 Ml Vial IJ 50 ml .FOR DI USE LIZA Administration IV IV Catheter Type [Left Peripheral IV Antecubital] IV Catheter Gauge [Left 18 Antecubital] Diet Orders Category Date Time Status Heart Healthy Eating [DIET] Nutrition 08/05/24 Breakfast Ordered Diagnostics 08/04/24 08/04/24 Range/Units 18:17 16:57 WBC 8.64 (4.4-10.8) 10^3/uL RBC 4.53 (3.93-5.22) 10^6/uL Hgb 14.8 (11.2-15.7) g/dL Hct 42.3 (36.0-46.0) % MCV 93 (80-95) fL MCH 32.7 (27.0-33.0) pg MCHC 35.0 (32.0-36.0) % RDW 11.6 L (11.7-14.6) % Plt Count 171 (130-400) 10^3/uL MPV 7.8 L (8.0-11.0) fL Immature Gran % 0.2 % Neutrophils % 57.2 % Lymphocytes % 18.4 % Monocytes % 7.3 % Eosinophils % 16.0 % Basophils % 0.9 % Nucleated RBC % 0.0 (0.0-0.3) % Absolute Neutrophils 4.94 (1.2-6.7) 10^3/uL Absolute Lymphocytes 1.59 (1.2-3.4) 10^3/uL Absolute Monocytes 0.63 (0.1-0.8) 10^3/uL Absolute Eosinophils 1.38 H (0.0-0.7) 10^3/uL Absolute Basophils 0.08 (0.0-0.2) 10^3/uL D-Dimer 1300 H (<500) ng/mlFEU VBG pH 7.31 (7.31-7.41) VBG pCO2 61 H (41-51) mmHg VBG pO2 27 mmHg VBG HCO3 31 H (23-28) mmol/L VBG Total CO2 28 (24-29) mmol/L VBG O2 Saturation 45 % VBG Base Excess 4 H (-2-3) mmol/L Sodium 128 L (136-145) mmol/L Potassium 4.8 (3.5-5.1) mmol/L Chloride 91 L (98-107) mmol/L Carbon Dioxide 31.1 (21.0-32.0) mmol/L Anion Gap 5.9 (3-11) mmol/L BUN 20 H (7-18) mg/dL Creatinine 1.0 (0.55-1.02) mg/dL Est GFR (CKD-EPI 2020) 59.49 (mL/min/1.73m2) Glucose 131 H (74-106) mg/dL Calcium 9.0 (8.5-10.1) mg/dL Magnesium 1.7 L (1.8-2.4) mg/dL Total Bilirubin 0.6 (0.2-1.0) mg/dL AST 31 (15-37) U/L ALT 36 (14-59) U/L Alkaline Phosphatase 53 (46-116) U/L Troponin I < 4 7 (<or=51) ng/L NT-Pro-B Natriuret Pep 98 (<300) pg/mL Total Protein 7.7 (6.4-8.2) g/dL Albumin 3.6 (3.4-5.0) g/dL COVID-19 Source Nasopharynx SARS-CoV-2 (PCR) Negative (Negative) Influenza Type A (PCR) Negative (Negative) Influenza Type B (PCR) Negative (Negative) RSV (PCR) Negative (Negative) 08/04/24 18:40 Blood Culture - Pending Blood 08/04/24 16:57 Blood Culture - Pending Blood Intake and Output - 24 Hour Total 08/04/24 16:45 thru 08/04/24 16:51 Weight 86.636 kg Falls Risk Assessment History of Falls No History 08/04/24 17:18 Contributing Factors No Factors 08/04/24 17:18 Ambulatory Aids Independent 08/04/24 17:18 Gait Evaluation No gait disturbance 08/04/24 17:18 Cognition No cognitive impairment 08/04/24 17:18 Fall Total Score 0 08/04/24 17:18 Level of Risk Standard/Low Risk 08/04/24 17:18 v v v v v v v v v Sending and/or Receiving Nurses: Please use comment section below to note any information pertinent to the patient hand-off not included above. Information / Comments:No questions Report received from:Lala
--- NOTE | 2024-08-04 22:21 | W.PM.HP.N ---
Date of service: 08/04/24 Time of Service: 22:22 Assessment and Plan Assessment and plan (1) Acute hypoxic respiratory failure: Status: Acute Assessment and plan: -O2 sats into the 70s on arrival, now maintaining sats in the mid 90s on 4 L NC -Afebrile with normal WBCS -No clear infiltrate/consolidation on CTA chest that was performed due to elevated dimer and is also negative for PE -COVID, flu, RSV negative -Blood cxs obtained in ED -Received a dose of rocephin/azithromycin IV in the ED this evening-defer further AB until repeat labs/assessment by day provider in AM -No prior hx of COPD/asthma, but does have smoking hx -Had a dose of IV solumedrol in the ED, will continue PO prednisone in the AM -Suspect new viral exposure leading to acute bronchitis vs ongoing pneumonia -Possibly some component of RAD/COPD contributing although does not have longstanding respiratory issues (2) Mixed hyperlipidemia: Status: Acute Assessment and plan: continue statin (3) Benign essential hypertension: Status: Acute Assessment and plan: continue usual medication (4) Hyponatremia: Status: Acute Assessment and plan: Na 128 in ED, had 1 L IVF, repeat lytes in AM (5) Hypomagnesemia: Status: Acute Assessment and plan: Mg low and replaced IV in ED, repeat lytes in AM History of Present Illness Narrative: 74 yo female with no known history of COPD or asthma although she is a former smoker having quit over 20 yrs ago, she presented to the ED with concern about cough and dyspnea. First started to have problems about a month ago with fever/chills, cough and generalized malaise. At the time she waited about a week before being seen and was diagnosed with pneumonia at [facility]. She started treatment with 2 antibiotics and prednisone on July 16, she completed that treatment about 1.5 weeks ago. She had felt better for several days, but has become worse over the past 3-4 days. She has a horrible cough that is productive at times and this causes her to be out of breath. Cough is worse when lying down, but she does not endorse orthopnea or PND. Cough medicine does not seem to be helping. She was prescirbed an albuterol inhaler last March by her PCP because of some wheezing, she has been using that the past few days with no relief. She also has HOLLIDAY and is out of breath with minimal exertion. Occasional ankle edema that is worse after BL hip replacements, but no swelling currently. No known history of heart disease. No fever since her initial illness last month. 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 She is feeling better now after treatment provided in the ED. She told me she would want to be DNR. All other ROS is negative. PFSH All Active Problems (Updated 08/04/24 @ 22:47 by Kathy Knowels MD) Hypomagnesemia (Acute) Hyponatremia (Acute) Right lower lobe pneumonia (Acute) Acute hypoxic respiratory failure (Acute) History of left hip replacement (Acute 06/08/22) Osteoarthritis of left knee (Acute) DEPO MEDROL: 05/27/2022 Mixed hyperlipidemia (Acute) Benign essential hypertension (Acute) Acute blood loss as cause of postoperative anemia (Acute) Medical History (Updated 08/04/24 @ 22:47 by Kathy Knowles MD) Primary osteoarthritis of right hip (01/09/16) Annular psoriasis Surgical History (Updated 06/21/22 @ 13:08 by Igor Ambriz RN) History of cataract surgery History of total right hip replacement History of colonoscopy Social History Smoking/Tobacco Use Status: Former Tobacco Use Smoking risk assessment performed?: Yes Drug use: Never Substance use type: does not use Do you feel safe at home: Yes Do you feel safe in your relationship?: Yes Meds Allergies and Home Medications Allergies Allergy/AdvReac Type Severity Reaction Status Date / Time No Known Allergies Allergy Verified 08/04/24 21:51 Home Medications ?Medication ?Instructions ?Recorded ?Confirmed ?Type lisinopril 20 1 tab PO DAILY 12/04/15 08/04/24 History mg-hydrochlorothiazide 12.5 mg tablet lovastatin 20 mg tablet 20 mg PO HS 03/10/22 08/04/24 History Exam Const General: no acute distress Resp Auscultation: other (scattered inspiratory wheezing BL with no focal findings) Cardio Rate: regular rate Rhythm: regular rhythm GI Palpation: soft Auscultation: normal bowel sounds Extrem Other: no LE edema Psych Appearance: grossly normal Results Labs 08/04/24 16:57 08/04/24 16:57 Labs: Laboratory Results - last 24 hr 08/04/24 08/04/24 16:57 18:17 WBC 8.64 RBC 4.53 Hgb 14.8 Hct 42.3 MCV 93 MCH 32.7 MCHC 35.0 RDW 11.6 L Plt Count 171 MPV 7.8 L Immature Gran % 0.2 Neutrophils % 57.2 Lymphocytes % 18.4 Monocytes % 7.3 Eosinophils % 16.0 Basophils % 0.9 Nucleated RBC % 0.0 Absolute Neutrophils 4.94 Absolute Lymphocytes 1.59 Absolute Monocytes 0.63 Absolute Eosinophils 1.38 H Absolute Basophils 0.08 D-Dimer 1300 H VBG pH 7.31 VBG pCO2 61 H VBG pO2 27 VBG HCO3 31 H VBG Total CO2 28 VBG O2 Saturation 45 VBG Base Excess 4 H Sodium 128 L Potassium 4.8 Chloride 91 L Carbon Dioxide 31.1 Anion Gap 5.9 BUN 20 H Creatinine 1.0 Est GFR (CKD-EPI 2020) 59.49 Glucose 131 H Calcium 9.0 Magnesium 1.7 L Total Bilirubin 0.6 AST 31 ALT 36 Alkaline Phosphatase 53 Troponin I 7 < 4 NT-Pro-B Natriuret Pep 98 Total Protein 7.7 Albumin 3.6 COVID-19 Source Nasopharynx SARS-CoV-2 (PCR) Negative Influenza Type A (PCR) Negative Influenza Type B (PCR) Negative RSV (PCR) Negative Last Vital Signs Temp 36.5 C 08/04/24 22:16 Pulse 94 H 08/04/24 22:16 Resp 18 08/04/24 22:16 BP 156/80 H 08/04/24 22:16 Pulse Ox 97 08/04/24 22:16 Time Spent Time spent with Patient: 40-54 minutes Time was spent: preparing to see the patient(eg.review tests), obtaining and/or reviewing separately otained hiistory and ordering medications,tests, procedures
[2024-08-05] VITALS (11 sets, daily range): BP systolic 132–145; BP diastolic 62–67; PULSE 74–86; RESP 5–24; TEMP 36.4–36.9; O2SAT 92–97
[2024-08-05 06:45] LABS: HCT 38.4 % (36.0-46.0); HGB 13.7 g/dL (11.2-15.7); MCH 32.4 pg (27.0-33.0); MCHC 35.7 % (32.0-36.0); MCV 91 fL (80-95); MPV 7.7 fL (8.0-11.0); Platelet Count 163 10^3/uL (130-400); RBC 4.23 10^6/uL (3.93-5.22); RDW 11.4 % (11.7-14.6); RDW-SD 37.9 fL
[2024-08-05 07:13] LABS: Anion Gap 8.4 mmol/L (3-11); BUN 18 mg/dL (7-18); CO2 27.6 mmol/L (21.0-32.0); CREATININE 1.1 mg/dL (0.55-1.02); Calcium 8.6 mg/dL (8.5-10.1); Chloride 94 mmol/L (98-107); Estimated GFR 53.06 (mL/min/1.73m2); Glucose 153 mg/dL (74-106); Potassium 4.5 mmol/L (3.5-5.1); Sodium 130 mmol/L (136-145)
[2024-08-05] MEDS: Lisinopril 20 MG TAB PO (08:23)
[2024-08-05] MEDS: predniSONE 20 MG TAB 60 MG PO (08:23)
[2024-08-05] MEDS: hydroCHLOROthiazide 12.5 MG TAB PO (08:24)
--- NOTE | 2024-08-05 09:30 | INITIAL_ITS ---
Date of service: 08/05/24 Time of Service: 09:31 Care Management Initial Assmt Initial Assessment Reason for Hospitalization: pneumonia Functional Status/Living Situation Patient Presentation: Loly was sitting up in bed when CM met with her. She stated that she is feeling better today, but is still requiring supplemental O2, which she does not use at baseline. She stated that she lives with her in [facility] and is independent at baseline. 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 She stated that she has two daughters who are very supportive; one lives locally and one lives in [place]. She feels well supported in the community, and did not identify any discharge needs. CM will continue to follow. Town of Residence: [facility] Resides with: Spouse (, Aquilino) Significant Other/Family: Local Natural Supports: , Aquilino Sister, Joana Rabago Two daughters Employment Status: Employed ([employer]) Instrumental Activities of Daily Living (ADLs): Independent Medications Medication Management: No Issues/Barriers identified Advance Directives Advance Directives: Do you have an Advance Directive: N 01/26/22 15:18 AD On File at [facility]: N 01/26/22 15:18 Date Asked 07/11/24 07/11/24 08:24 AD Date Reviewed COLST On File at [facility] COLST Date Scanned Code Status Resuscitation Status DNR Insurance Coverage/Financial Issues Insurance: MELY Garrido supplement Care Team Visit Care Team Role Provider Type Unknown Unknown Primary Care Provider STAFF PHYSICIAN [place] [facility] Provider [facility] [employer] Kathy Knowles MD Admit Provider [facility] STAFF PHYSICIAN Attending Provider Discharge Potential Discharge Needs: PCP F/U Appt Anticipated Barriers to Discharge: None Identified Patient/Family Education Needs: Review discharge instructions, discuss Ask Me Three Transportation: Private vehicle Plan: Anticipate Loly will return home once medically cleared. Her will drive her home via private vehicle. She will follow up with her PCP and discharge plan of care. CM will continue to follow. Social Determinants of Health Screening Social Determinants of Health last assessed: 08/05/24 Will the Patient Participate in the Screening?: Yes Do you worry about having a steady place to live?: no Problems where you live: no known problems In the past 12 months, have you had to go without electric, gas, oil or water in your home?: no Have you or anyone in your house had to go without enough food to eat?: no Has lack of transportation kept you from medical appointments or from doing things needed for daily living?: no Has anyone in your life made you feel unsafe or unsupported?: no How hard is it for you to pay for the very basics like food, housing, medical care, and heating? Would you say it is:: Not hard at all Do you want help finding or keeping work or a job?: I do not need or want help If for any reason you need help with day-to-day activities such as bathing, preparing meals, shopping, managing finances, etc., do you get the help you need?: I don?t need any help How often do you feel lonely or isolated from those around you?: Never Do you speak a language other than Uzbek at home?: No Does the patient want assistance with any of the above?: No PFSH All Active Problems (Updated 08/05/24 @ 16:58 by Nadiya Wilkerson NP) Discharge planning issues (Acute) Hypomagnesemia (Acute) Hyponatremia (Acute) Right lower lobe pneumonia (Acute) Acute hypoxic respiratory failure (Acute) History of left hip replacement (Acute 06/08/22) Osteoarthritis of left knee (Acute) DEPO MEDROL: 05/27/2022 Mixed hyperlipidemia (Acute) Benign essential hypertension (Acute) Acute blood loss as cause of postoperative anemia (Acute) Medical History (Updated 08/05/24 @ 16:58 by Nadiya Wilkerson NP) Primary osteoarthritis of right hip (01/09/16) Annular psoriasis Surgical History (Updated 06/21/22 @ 13:08 by Igor Ambriz RN) History of cataract surgery History of total right hip replacement History of colonoscopy Social History Smoking/Tobacco Use Status: Former Tobacco Use Smoking risk assessment performed?: Yes Drug use: Never Substance use type: does not use Housing: house Do you feel safe at home: Yes Do you feel safe in your relationship?: Yes
[2024-08-05 10:12] LABS: Lab Add On Test DONE
[2024-08-05] MEDS: guaiFENesin 600 MG TABCR PO ×2 (10:35→20:22)
[2024-08-05] MEDS: Normal Saline Flush 10 ML SYR IVP ×2 (10:36→20:22)
[2024-08-05 10:40] LABS: Procalcitonin < 0.10 ng/mL
[2024-08-05] MEDS: Albuterol/Ipratropium 3 ML UPD VIAL UPD ×3 (11:40→20:30)
--- NOTE | 2024-08-05 16:51 | W.PM.PROGNOT ---
Date of Service Date of service: 08/05/24 Time of Service: 16:51 Assessment and Plan Assessment and plan (1) Acute hypoxic respiratory failure: Status: Acute Assessment and plan: -O2 sats into the 70s on arrival requiring 4 liters/nc, now maintaining sats in the mid 90s on 2.5 L NC -Afebrile with normal WBCS, negative procal -No clear infiltrate/consolidation on CTA chest that was performed due to elevated dimer and is also negative for PE -COVID, flu, RSV negative -Blood cxs obtained in ED still pending -Received a dose of rocephin/azithromycin IV in the ED, no further antibiotics indicated at this time -No prior hx of COPD/asthma, but does have smoking hx -Had a dose of IV solumedrol in the ED, will continue PO prednisone burst -Possibly some component of RAD/COPD consider LABA on discharge. outpatient PFT's when recovered. (2) Mixed hyperlipidemia: Status: Acute Assessment and plan: continue statin (3) Benign essential hypertension: Status: Acute Assessment and plan: continue usual medication (4) Hyponatremia: Status: Acute Assessment and plan: Na 128 in ED, now at 130 after 1 liter of NS (5) Hypomagnesemia: Status: Acute Assessment and plan: Mg 1.7 replaced IV in ED, follow labs (6) Discharge planning issues: Status: Acute Assessment and plan: DVT prophylaxis: enoxaparin daily anticipate discharge to home with no new services once medically stable. discussed with Dr Hernandez Subjective Subjective Patient reports: no new complaints, feels better, tolerating liquids well, tolerating a regular diet, voiding w/o difficulty, shortness of breath and afebrile Interval history since last seen: weaning slowly on oxygen, feels breathing much better Exam Const General: cooperative, healthy appearing and no acute distress Orientation: alert, awake and oriented x3 HENMT Head: normal to inspection, normocephalic and atraumatic Chest Chest: normal inspection of the chest Resp Effort & Inspection: normal respiratory effort Auscultation: diminished lung sounds and wheezes expiratory wheezes (throughout) Cardio Rate: regular rate Rhythm: regular rhythm GI Inspection: normal to inspection Palpation: soft Auscultation: normal bowel sounds Skin General skin exam: no rashes or lesions noted Neuro General: patient alert, patient awake and patient oriented x3 Cognition: normal cognition Speech: speech normal Extrem General: normal to inspection, full ROM and no pedal edema Objective Last Vital Signs Temp 36.9 C 08/05/24 16:01 Pulse 80 08/05/24 16:01 Resp 15 08/05/24 16:01 BP 136/65 08/05/24 16:01 Pulse Ox 95 08/05/24 16:01 Laboratory Results - last 24 hr 08/04/24 08/04/24 08/05/24 16:57 18:17 06:18 WBC 8.64 5.10 RBC 4.53 4.23 Hgb 14.8 13.7 Hct 42.3 38.4 MCV 93 91 MCH 32.7 32.4 MCHC 35.0 35.7 RDW 11.6 L 11.4 L Plt Count 171 163 MPV 7.8 L 7.7 L Immature Gran % 0.2 Neutrophils % 57.2 Lymphocytes % 18.4 Monocytes % 7.3 Eosinophils % 16.0 Basophils % 0.9 Nucleated RBC % 0.0 Absolute Neutrophils 4.94 Absolute Lymphocytes 1.59 Absolute Monocytes 0.63 Absolute Eosinophils 1.38 H Absolute Basophils 0.08 D-Dimer 1300 H VBG pH 7.31 VBG pCO2 61 H VBG pO2 27 VBG HCO3 31 H VBG Total CO2 28 VBG O2 Saturation 45 VBG Base Excess 4 H Sodium 128 L 130 L Potassium 4.8 4.5 Chloride 91 L 94 L Carbon Dioxide 31.1 27.6 Anion Gap 5.9 8.4 BUN 20 H 18 Creatinine 1.0 1.1 H Est GFR (CKD-EPI 2020) 59.49 53.06 Glucose 131 H 153 H Calcium 9.0 8.6 Magnesium 1.7 L Total Bilirubin 0.6 AST 31 ALT 36 Alkaline Phosphatase 53 Troponin I 7 < 4 NT-Pro-B Natriuret Pep 98 Total Protein 7.7 Albumin 3.6 Procalcitonin < 0.10 COVID-19 Source Nasopharynx SARS-CoV-2 (PCR) Negative Influenza Type A (PCR) Negative Influenza Type B (PCR) Negative RSV (PCR) Negative Add-On Test Request DONE PAWSS Have you Been Recently Intoxicated or Drunk Within the Last 30 days?: No Have you Ever Experienced Previous Episodes of Alcohol Withdrawal?: No Have you ever Experienced Withdrawal Seizures?: No Have you ever Experienced Delirium Tremens(DT)s?: No Have you ever undergone Alcohol Rehabilitation Treatment (i.e, inpt ot outpatient treatment programs)?: No Have you ever Experienced Blackouts?: No Have you ever Combined Alcohol with other Downers within the last 90 days?: No Have you ever Combined Alcohol with any other Substance of Abuse during the last 90 days?: No Positive Blood Alcohol level on Presentation? [PCS.BAL]: No Evidence of Increased Autonomic Activity (i.e. HR>120, tremor, sweating, agitation, nausea)?: No Result: 0 Time Spent with Patient Time Spent with Patient: 35-49 minutes Time was spent: preparing to see the patient(eg.review tests), obtaining and/or reviewing separately otained hiistory, ordering medications,tests, procedures, indepentently interpreting results and counseling the patient
[2024-08-05] MEDS: Enoxaparin 40 MG/0.4 ML SYR SC (20:21)
[2024-08-05] MEDS: Lovastatin 20 MG TAB PO (20:22)
[2024-08-06 03:34] VITALS: BP 137/84; PULSE 72; RESP 15; TEMP 36.5; O2SAT 97
[2024-08-06 06:53] LABS: Abs Immature Grans 0.08 10^3/uL (0.0-0.06); Absolute Basophil Count 0.02 10^3/uL (0.0-0.2); Absolute Eosinophil Count 0.01 10^3/uL (0.0-0.7); Absolute Lymphocyte Count 2.16 10^3/uL (1.2-3.4); Absolute Monocyte Count 0.78 10^3/uL (0.1-0.8); Absolute Neutrophil Count 6.13 10^3/uL (1.2-6.7); Basophils % 0.2 %; Eosinophils % 0.1 %; HCT 34.9 % (36.0-46.0); HGB 12.6 g/dL (11.2-15.7); Immature Grans % 0.9 %; Lymphocytes % 23.5 %; MCH 32.9 pg (27.0-33.0); MCHC 36.1 % (32.0-36.0); MCV 91 fL (80-95); MPV 7.9 fL (8.0-11.0); Monocytes % 8.5 %; Neutrophils % 66.8 %; Platelet Count 169 10^3/uL (130-400); RBC 3.83 10^6/uL (3.93-5.22); RDW 11.7 % (11.7-14.6); RDW-SD 38.6 fL; WBC 9.18 10^3/uL (4.4-10.8)
[2024-08-06 07:23] LABS: Anion Gap 5.3 mmol/L (3-11); BUN 20 mg/dL (7-18); CO2 30.7 mmol/L (21.0-32.0); CREATININE 1.1 mg/dL (0.55-1.02); Calcium 8.6 mg/dL (8.5-10.1); Chloride 96 mmol/L (98-107); Estimated GFR 53.06 (mL/min/1.73m2); Glucose 105 mg/dL (74-106); Magnesium 2.3 mg/dL (1.8-2.4); Potassium 4.4 mmol/L (3.5-5.1); Sodium 132 mmol/L (136-145)
[2024-08-06 08:03] VITALS: BP 153/80; PULSE 72; RESP 15; TEMP 35.7; O2SAT 98
--- NOTE | 2024-08-06 08:55 | PDOC.CMPRO ---
Date of service: 08/06/24 Time of Service: 08:55 Care Management Progress Note Discharge Potential Discharge Needs: PCP F/U Appt Anticipated Barriers to Discharge: None Identified Patient/Family Education Needs: Review discharge instructions, discuss Ask Me Three Transportation: Private vehicle Plan: Anticipate Loly will return home with no new services once medically cleared. Her will drive her home via private vehicle and she will follow up with her PCP and discharge plan of care. CM will follow and continue to assess for discharge planning concerns. Social Determinants of Health Screening Social Determinants of Health last assessed: 08/06/24 Will the Patient Participate in the Screening?: Yes Do you worry about having a steady place to live?: no Problems where you live: no known problems In the past 12 months, have you had to go without electric, gas, oil or water in your home?: no Have you or anyone in your house had to go without enough food to eat?: no Has lack of transportation kept you from medical appointments or from doing things needed for daily living?: no Has anyone in your life made you feel unsafe or unsupported?: no How hard is it for you to pay for the very basics like food, housing, medical care, and heating? Would you say it is:: Not hard at all Do you want help finding or keeping work or a job?: I do not need or want help If for any reason you need help with day-to-day activities such as bathing, preparing meals, shopping, managing finances, etc., do you get the help you need?: I don?t need any help How often do you feel lonely or isolated from those around you?: Never Do you speak a language other than [place] at home?: No Does the patient want assistance with any of the above?: No
[2024-08-06 08:57] VITALS: RESP 16; RESP 9; O2SAT 97
[2024-08-06] MEDS: hydroCHLOROthiazide 12.5 MG TAB PO (09:05)
[2024-08-06] MEDS: predniSONE 20 MG TAB 60 MG PO (09:05)
[2024-08-06] MEDS: Lisinopril 20 MG TAB PO (09:07)
[2024-08-06] MEDS: Normal Saline Flush 10 ML SYR IVP (09:07)
[2024-08-06] MEDS: guaiFENesin 600 MG TABCR PO (09:07)
--- NOTE | 2024-08-06 13:37 | DSE_ITS ---
Date of service: 08/06/24 Time of Service: 13:37 DS: Diagnosis Discharge Diagnosis (1) Acute hypoxic respiratory failure: Status: Acute (2) Mixed hyperlipidemia: Status: Acute (3) Benign essential hypertension: Status: Acute (4) Hyponatremia: Status: Acute (5) Hypomagnesemia: Status: Acute (6) Discharge planning issues: Status: Acute Discharge Plan Disposition Patient Disposition: Home Condition: Improving Discharge Details Reason For Visit: Pneumonia Admit Date/Time: 08/04/24 21:31 Admit Provider: Kathy Knowles Attending Provider: Kathy Knowles Primary Care Provider: Unknown,Unknown Hospital Course Hospital Course: A 74-year-old female with no known history of COPD or asthma, but a former smoker who quit over 20 years ago, presented to the ED with concerns of cough and dyspnea. Her symptoms began about a month ago with fever, chills, cough, and generalized malaise. After waiting a week, she was diagnosed with pneumonia at an [facility] on July 16. She started treatment with two antibiotics and prednisone, completing the regimen 1.5 weeks ago. Although she initially f elt better, her symptoms worsened over the past 3-4 days. She has a severe cough that is sometimes productive and causes shortness of breath. The cough worsens when lying down, but she denies orthopnea or paroxysmal nocturnal dyspnea Cough medicine has not been effective, and she has been using an albuterol inhaler prescribed last March by her PCP for wheezing, with no relief. She also experiences dyspnea on exertion, becoming out of breath with minimal activity. She reports occasional ankle edema, worse after bilateral hip replacements, though no current swelling is present. She has no known history of heart disease. There has been no fever since her initial illness. 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 After treatment in the ED, she is feeling better. The patient expressed a desire to be DNR. Past, Family, and Social History (PFSH): * Active Problems: * Hypomagnesemia (Acute) * Hyponatremia (Acute) * Right lower lobe pneumonia (Acute) * Acute hypoxic respiratory failure (Acute) * History of left hip replacement (06/08/22) * Osteoarthritis of left knee * Mixed hyperlipidemia (Acute) * Benign essential hypertension (Acute) * Acute blood loss as a cause of postoperative anemia (Acute) * Medical History: * Primary osteoarthritis of right hip (01/09/16) * Annular psoriasis * Surgical History: * Cataract surgery * Total right hip replacement * Colonoscopy * Social History: * Former smoker (quit over 20 years ago) * Denies drug use * No substance use * Feels safe at home and in her relationship Medications: * Home Medications: * Lisinopril 20 mg PO daily * Hydrochlorothiazide 12.5 mg * Lovastatin 20 mg PO at bedtime * Allergies: No known allergies. Labs and Results: * WBC: 8.64 * Sodium: 128 * Potassium: 4.8 * Magnesium: 1.7 * D-Dimer: 1300 * VBG pCO2: 61 * VBG pO2: 27 * Troponin I: 7 * COVID, Flu, RSV: Negative * Glucose: 131 * Creatinine: 1.0 * BUN: 20 Vital Signs * Temp: 36.5?C * Pulse: 94 bpm * Respiratory Rate: 18 * Blood Pressure: 156/80 * Pulse Ox: 97% Patient was admitted to the medical unit for further testing and treatment. Labs improved sodium 132, BUN 20, Creatinine 1.1, magnesium 2.3, potassium 4.4. Patient symptoms improved, no oxygen requirement. Right lower lobe infiltrate on CT.. Procalcitonin negative. Patient is discharged to home with five days of prednisone orally and azithromycin for five days. Continue albuterol inhaler as needed - use spacer. Home Meds and New Rx's Prescriptions: New prednisone 20 mg Tablet 40 mg PO DAILY Qty: 5 0RF azithromycin 500 mg tablet 500 mg PO DAILY 5 Days Qty: 5 0RF Continued lovastatin 20 mg tablet 20 mg PO HS lisinopril-hydrochlorothiazide 1 EACH tablet 1 tab PO DAILY Discharge Instructions Instructions: Albuterol, Prednisone Additional Instructions: Follow up with your primary care provider. Return to the emergency department if any chest pain, shortness of breath, or other concerns. Take prednisone 40 mg daily for 5 days. Take azithromycin 500 mg daily for 5 days. Continue using your inhaler (albuterol) with spacer. Stand Alone Forms: Nursing Discharge Form Referrals: Mei Sheikh [NURSE PRACTITIONER] - (The office has your information and will call you for an appointment within a week. ) Activity:: Activity as Tolerated Equipment/Supplies:: No Equipment Needed Diet:: As Tolerated Discharge Orders Discharge Orders: Discharge Order (Routine); Ordered 08/06/24 Ordered By: Izzy Vanegas Discharge Data Discharge Date/Time-TO BE ENTERED AT DEPARTURE: 08/06/24 14:38 DS: Summary Time Spent with Patient providing and/or coordinating discharge services: Greater than 30 minutes Status at Discharge Functional status at discharge: independent ambulation Overall status at discharge: patient is progressing back to baseline Mental Status: mental status grossly normal Speech and Movement: speech and movement normal Mood: congruent mood Affect: normal affect Quality:SDOH Health Related Social Needs: No Data to Display Exam Psych Mental Status: mental status grossly normal Speech and Movement: speech and movement normal Mood: congruent mood Affect: normal affect DS: Data Vitals/I&O Vitals and I&O: Vital Signs Temperature 35.7 C L 08/06/24 08:03 Temperature Source Temporal Artery Scan 08/06/24 08:03 Pulse 72 08/06/24 08:03 Pulse Rhythm Regular 08/04/24 22:13 Pulse 95 H 08/04/24 20:00 Respiratory Rate 16 08/06/24 08:57 Respiratory Effort Normal 08/04/24 22:13 Respiratory Depth Normal 08/04/24 22:13 Respiratory Pattern Normal 08/04/24 22:13 Blood Pressure 153/80 H 08/06/24 08:03 Blood Pressure Mean 68 08/04/24 18:52 Pulse Oximetry 97 08/06/24 08:57 Oxygen Delivery Method Room Air 08/06/24 08:57 Oxygen Flow Rate 0 08/06/24 08:57 Pain Level 0 08/06/24 08:00 Comment RN notified 08/06/24 08:03 Intake & Output 08/05/24 08/06/24 08/06/24 23:59 11:59 23:59 Intake Total 240 / 270 Balance 240 / 270 Weight 80.3 kg Intake: IV Oral 240 / 240 Other: Urine Color Yellow Urine Appearance Clear Comment voids independently in toilet pT has voided independently Stool Size Moderate Data Completed and Pending Labs on day of discharge: Labs from last 24 hours 08/06/24 06:30 WBC 9.18 RBC 3.83 L Hgb 12.6 Hct 34.9 L MCV 91 MCH 32.9 MCHC 36.1 H RDW 11.7 Plt Count 169 MPV 7.9 L Immature Gran % 0.9 Neutrophils % 66.8 Lymphocytes % 23.5 Monocytes % 8.5 Eosinophils % 0.1 Basophils % 0.2 Nucleated RBC % 0.0 Absolute Neutrophils 6.13 Absolute Lymphocytes 2.16 Absolute Monocytes 0.78 Absolute Eosinophils 0.01 Absolute Basophils 0.02 Sodium 132 L Potassium 4.4 Chloride 96 L Carbon Dioxide 30.7 Anion Gap 5.3 BUN 20 H Creatinine 1.1 H Est GFR (CKD-EPI 2020) 53.06 Glucose 105 Calcium 8.6 Magnesium 2.3 Preliminary micro results at discharge 08/04/24 18:40 Blood Culture - Preliminary Blood NO GROWTH 24 HOURS 08/04/24 16:57 Blood Culture - Preliminary Blood NO GROWTH 24 HOURS PFSH All Active Problems (Updated 08/06/24 @ 13:22 by Izzy Vanegas NP) Discharge planning issues (Acute) Hypomagnesemia (Acute) Hyponatremia (Acute) Right lower lobe pneumonia (Acute) Acute hypoxic respiratory failure (Acute) History of left hip replacement (Acute 06/08/22) Osteoarthritis of left knee (Acute) DEPO MEDROL: 05/27/2022 Mixed hyperlipidemia (Acute) Benign essential hypertension (Acute) Acute blood loss as cause of postoperative anemia (Acute) Medical History (Updated 08/06/24 @ 13:22 by Izzy Vanegas NP) Primary osteoarthritis of right hip (01/09/16) Annular psoriasis Surgical History (Updated 06/21/22 @ 13:08 by Igor Ambriz RN) History of cataract surgery History of total right hip replacement History of colonoscopy Social History Smoking/Tobacco Use Status: Former Tobacco Use Smoking risk assessment performed?: Yes Drug use: Never Substance use type: does not use Housing: house Do you feel safe at home: Yes Do you feel safe in your relationship?: Yes Time Spent with Patient Time Spent with Patient: 45-69 minutes Time was spent: preparing to see the patient(eg.review tests), ordering medications,tests, procedures, referring, communicating with other health child day care provider, indepentently interpreting results, counseling the patient and care coordination
[2024-08-06] MEDS: Loperamide 2 MG CAP 4 MG PO (14:23)
--- NOTE | 2024-08-06 16:54 | PDOC.CMDIS ---
Date of service: 08/06/24 Time of Service: 16:55 LACE Index Scoring Tool Questions: Length of Stay (in days): 2 Was the patient admitted via the E.D.?: Yes E.D. Visits: 1 Answers: Total Score: 6 Risk of Readmission: Low Risk Care Management Discharge Plan Reason for Hospitalization: Pneumonia Patient/Family Education Needs: Review of discharge instructions, limitations, follow up plan and discuss Ask Me Three [facility] Health Related Social Needs: No Data to Display
== END 2024-08-06 14:38 | disposition home or self-care (01) ==
LOC: ER 21:50 → MS 08-05 06:12
PROVIDERS: Nurse Practitioner Acute Care; Admitting Provider Family Medicine; Emergency Provider Physician Assistant; Responsible Provider Nurse Practitioner Family; Visit Provider Family Medicine
DX: J18.9 Pneumonia, unspecified organism (principal); J96.01 Acute respiratory failure with hypoxia; R79.1 Abnormal coagulation profile; I10 Essential (primary) hypertension; E87.1 Hypo-osmolality and hyponatremia; Z87.891 Personal history of nicotine dependence; Z96.643 Presence of artificial hip joint, bilateral; E83.42 Hypomagnesemia; M17.12 Unilateral primary osteoarthritis, left knee; E78.2 Mixed hyperlipidemia; Z79.899 Other long term (current) drug therapy; R05.3 Chronic cough; R60.0 Localized edema; Z66 Do not resuscitate
CPT/HCPCS: 00123; 36415; 71275; 80048; 80053; 82805; 84145; 85027; 87040; 87637; 93005; 96365; 96367; 96368; 96372; 96375; 99285; J1650; 83735; 83880; 84484; 85025; 85379; 93010; 94640; 94667; 94668; 94760; 99223; 99233; 99239; G0378; J0456; J0696; J1885; J2919; J3475; J3490; J7512; J7620

== ENCOUNTER 2024-09-13 13:08 | Outpatient (CLI) | payer MEDICARE, OTHER, SELFPAY ==
--- NOTE | 2024-09-13 | DI.RAD_ITS ---
Exam(s) XR CHEST 2V PA LATERAL EXAM: XR CHEST 2V PA LATERAL CLINICAL HISTORY: R06.02 Shortness of breath TECHNIQUE: 2D digital imaging was performed of the chest. Two images were obtained. PA and lateral views were obtained. COMPARISON: CT CT CHEST PE CTA from 08/04/2024 FINDINGS: MEDIASTINUM: Normal. HEART: Normal. PULMONARY VASCULATURE: Normal. LUNGS: There is a linear opacity seen in the right middle lobe on the lateral view. The left lung is clear. PLEURAL SPACE: No pleural effusion or pneumothorax. BONE:Within normal limits for the patient's age. OTHER FINDINGS:Normal. IMPRESSION: Right middle lobe opacity which may represent atelectasis or pneumonia. DATA REPOSITORY: RADIATION DOSE DELIVERED:
== END 2024-09-13 13:28 ==
LOC: DI 13:12
PROVIDERS: Visit Provider Nurse Practitioner Family
DX: R06.02 Shortness of breath (principal)
CPT/HCPCS: 71046

== ENCOUNTER 2024-10-01 02:54 | Outpatient (CLI) | payer MEDICARE, OTHER, SELFPAY ==
--- NOTE | 2024-10-01 13:49 | DI.CTLCSR_ITS ---
Exam(s) CT CHEST LUNG CANCER SCREEN EXAM: CT CHEST LUNG CANCER SCREEN CLINICAL HISTORY: PERS HX NICOTINE DEPENDENCE Z87.891 FORMER SMOKER TECHNIQUE: Imaging Protocol: Axial computed tomography images with coronal and sagittal reformatted images were created and reviewed. Lung Computer Aided Detection (CAD) was utilized. COMPARISON: CT CT CHEST PE CTA from 08/04/2024 CR XR CHEST 2V PA LATERAL from 09/13/2024 FINDINGS: Tracheobronchial tree: Patent where visualized. No bronchiectasis. Pulmonary parenchyma: There is mild peripheral interstitial fibrosis. There are no focal consolidati ng infiltrates. Lung Nodules: There is a 3 mm nodule in the left lower lobe (series 2, image 79). There is a 4 mm tr iangular shaped nodule associated with the left major fissure (series 2, image 78). Mediastinum and Marianne: No dominant adenopathy or fluid collection. There is fluid seen in the esophagu s raising the concern for aspiration peer Thyroid gland: Unremarkable. Lymph nodes: Unremarkable. Pleura: No effusion or pneumothorax. Heart: The heart is not dilated. Mild coronary artery calcification is present. No pericardial effus ion. Aorta: Thoracic aorta non-dilated.Atherosclerotic calcification is present. Upper abdomen: Unremarkable. Soft Tissues: Unremarkable. Bones: Within normal limits. IMPRESSION: Two pulmonary nodules. Lung RADS Cat 3 - Probably Benign: Probably benign finding(s) - short term follow-up suggested; inclu de nodules with a low likelihood of becoming a clinically active cancer. Lung-RADS 1.0 CATEGORIES: Category 0 - Prior chest CT exam(s) being located for comparison. Category 1 - Annual screening in 12 months. No nodules or definitely benign nodules. Category 2 - Annual screening in 12 months. Benign appearance. Nodules with low likelihood of becomin g active cancer. Category 3 - 6-month follow-up. Probably benign. Short-term follow-up suggested. Nodules with low lik elihood of becoming active cancer. Category 4A - 3-month follow-up and CT/PET if >8 mm in size. Suspicious finding. Findings which requi re additional testing. Category 4B - Findings which require additional testing and tissue sampling. Suspicious finding. Category 4X - Category 3 or 4 nodules with additional features or imaging findings that increases the suspicion of malignancy. Modifier S- Potentially clinically significant finding. (Non lung cancer) RADIATION DOSE DELIVERED: 27.52mGy.cm Total DLP 27.52mGy.cmTotal DLP DATA REPOSITORY: All CT scans at this facility are submitted to the National Radiology Data Registry (NRDR) Dose Index Registry (DIR) with the [employer] (ACR). RADIATION OPTIMIZATION: All CT scans at this facility use at least one of these dose optimization te chniques: automated exposure control; mA and/or kV adjustment per patient size (includes targeted exa ms where dose is matched to clinical indication); or iterative reconstruction.
--- NOTE | 2024-10-01 14:30 | DI.MAMMO_ITS ---
Exam(s) MAMMO SCREENING EXAM: MAMMO SCREENING CLINICAL HISTORY: SCREENING MAMMO Z12.31 TECHNIQUE: Mammograms were interpreted according to the usual protocol including computer analysis w ith CAD system, tomosynthesis and C-view imaging. COMPARISON: 2019 through 2022 FINDINGS: The breasts are composed of mainly fatty density , Breast Density category A. No suspicious masses or suspicious microcalcifications are seen. No skin thickening or abnormal axillary lymph nodes are seen. There has been no significant change from prior exams. IMPRESSION: BI-RADS Category 1, Negative mammogram Yearly screening mammography is recommended. Breast Density - Category A, fatty density. Breast density Category C or D implies that the patient has dense breast tissue. Dense breast tissue can make it harder to find cancer on a mammogram. Dense breast tissue is also associated with an incr eased risk of breast cancer. This information about the result of the mammogram report was provided to the patient to raise their awareness. Use this report when you speak with the patient about their risks for breast cancer, which includes their family history. At that time, you may recommend additional screening tests (Ultrasoun d or MRI) as these tests may add significant information. A negative radiographic report should not delay biopsy if a dominant or clinically suspicious mass is present. Up to ten percent of cancers are not identified on mammography. A negative report may reinforce clinical impression. Adenosis and dense breasts may obscure an underlying neoplasm. False positive reports average 6 to 10%. Patient will receive a letter notifying them of these results.
== END 2024-10-01 03:14 ==
LOC: DI 02:54
PROVIDERS: PCP Student in an Organized Health Care Education/Training Program; Visit Provider Nurse Practitioner Family
DX: Z87.891 Personal history of nicotine dependence (principal); Z12.2 Encounter for screening for malignant neoplasm of respiratory organs; Z12.31 Encounter for screening mammogram for malignant neoplasm of breast; R91.8 Other nonspecific abnormal finding of lung field
CPT/HCPCS: 71271; 77063; 77067

== ENCOUNTER 2024-10-30 13:20 | Outpatient (REF) | payer MEDICARE, OTHER, SELFPAY ==
[2024-10-30 15:41] LABS: Abs Immature Grans 0.03 10^3/uL (0.0-0.06); Absolute Basophil Count 0.07 10^3/uL (0.0-0.2); Absolute Eosinophil Count 0.43 10^3/uL (0.0-0.7); Absolute Monocyte Count 0.63 10^3/uL (0.1-0.8); Absolute Neutrophil Count 4.61 10^3/uL (1.2-6.7); Basophils % 0.9 %; Eosinophils % 5.5 %; HCT 41.2 % (36.0-46.0); Immature Grans % 0.4 %; Lymphocytes % 26.7 %; MCH 30.8 pg (27.0-33.0); MCV 91 fL (80-95); MPV 8.2 fL (8.0-11.0); Neutrophils % 58.5 %; Platelet Count 224 10^3/uL (130-400); RBC 4.55 10^6/uL (3.93-5.22); RDW 11.9 % (11.7-14.6); RDW-SD 39.5 fL; WBC 7.87 10^3/uL (4.4-10.8)
[2024-10-30 15:47] LABS: ESR 21 mm/hr (0-30)
[2024-10-30 16:30] LABS: C-Reactive Protein < 0.50 mg/dL (<or=0.5)
[2024-10-30 22:38] LABS: Rheumatoid Factor <8.6 IU/mL (<12.0)
[2024-10-31 09:37] LABS: Cyclic Citrullinated Peptide <2.5 U/mL (<5.0)
== END 2024-10-30 13:21 | disposition home or self-care (01) ==
LOC: NCHCN 13:20
PROVIDERS: PCP Student in an Organized Health Care Education/Training Program; Visit Provider Student in an Organized Health Care Education/Training Program
DX: Z87.01 Personal history of pneumonia (recurrent) (principal); M19.041 Primary osteoarthritis, right hand
CPT/HCPCS: 85652; 86200; 85025; 86140; 86431

== ENCOUNTER 2024-11-01 01:18 | Outpatient (CLI) | payer MEDICARE, OTHER, SELFPAY ==
[2024-11-01] MEDS: Inhaler, Assist Device 1 EACH MC (09:18)
[2024-11-01] MEDS: Levalbuterol HFA 15 GM INH 4 PUFF IH (09:18)
--- NOTE | 2024-11-18 09:27 | W.PFT ---
Date of service: 11/01/24 Time of Service: 08:05 Pulmonary Function Test Result Indications: Pneumonia Interpretation Spirometry: There is severe airflow limitation. There is a significant bronchodilator response. Lung Volumes: There is air trapping Diffusion Capacity: Reduced diffusion Airway Pressure: Increased airways resistance Impression Severe airflow limitation with a bronchodilator response, air trapping and a reduced diffusion Clinical Correlation therefore is recommended.
== END 2024-11-01 01:19 | disposition home or self-care (01) ==
LOC: RT 01:18
PROVIDERS: PCP Student in an Organized Health Care Education/Training Program; Visit Provider Internal Medicine Cardiovascular Disease
DX: R05.3 Chronic cough (principal); Z87.891 Personal history of nicotine dependence
CPT/HCPCS: 94060; 94726; 94729

== ENCOUNTER → 2024-12-03 13:01 | Outpatient (BNVA) | payer MEDICARE, OTHER, SELFPAY | PROVIDERS: PCP Student in an Organized Health Care Education/Training Program; Referring Provider Student in an Organized Health Care Education/Training Program; Visit Provider Physician Assistant Surgical | DX: J44.9 Chronic obstructive pulmonary disease, unspecified (principal); J45.909 Unspecified asthma, uncomplicated; R91.8 Other nonspecific abnormal finding of lung field; Z87.891 Personal history of nicotine dependence | CPT/HCPCS: 99215 ==

== ENCOUNTER 2025-01-10 03:12 | Outpatient (CLI) | payer MEDICARE, OTHER, SELFPAY ==
--- NOTE | 2025-01-10 | DI.DEXA_ITS ---
Exam(s) XR DEXA BONE DENSITY W/WO MAILE EXAM: XR DEXA BONE DENSITY W/WO MAILE CLINICAL HISTORY: SCREENING FOR OSTEOPOROSIS IN POSTMENOPAUSAL STATE,Z78.0 TECHNIQUE: COMPARISON: No exams were available for comparison FINDINGS: Lateral Spine Image: Unremarkable. No compression deformities identified. Left forearm: Total T-Score: 1.3 Total Z-Score: 3.6 T- and Z-scores: Within normal limits. Lumbar Spine: Total T-Score: 3.9 Total Z-Score: 6.2 T- and Z-scores: Within normal limits. IMPRESSION: No evidence of osteoporosis.
== END 2025-01-10 03:32 ==
LOC: DI 03:12
PROVIDERS: PCP Student in an Organized Health Care Education/Training Program; Visit Provider Nurse Practitioner Family
DX: Z13.820 Encounter for screening for osteoporosis (principal); Z78.0 Asymptomatic menopausal state
CPT/HCPCS: 77080

== ENCOUNTER → 2025-04-12 01:31 | Outpatient (CLI) | payer MEDICARE, OTHER, SELFPAY ==
--- NOTE | 2025-04-12 | DI.CT_ITS ---
Exam(s) CT CHEST WO EXAM: CT CHEST WO CLINICAL HISTORY: NICOTINE DEPENDENCE CIGARETTE F17.210 2 SMALL 3 4MM NEW NODULE 6 MO FU FROM. TECHNIQUE: Imaging protocol: Axial computed tomography images were obtained and coronal and sagittal reformatted images were created and reviewed. Lung Computer Aided Detection (CAD) was utilized. COMPARISON: CT CT CHEST LUNG CANCER SCREEN from 10/01/2024 FINDINGS: Tracheobronchial tree: Patent where visualized. No bronchiectasis is present. Pulmonary parenchyma: No consolidation or dominant measurable mass. No architectural distortion. Calcified granuloma is present in the left lower lobe. The nodule seen in the left lower lobe is unchanged and measures 3 mm. There are no new pulmonary nodules. The perifissural nodule along the left major fissures unchanged. Mediastinum and Marianne: No dominant adenopathy or fluid collection. The esophagus is unremarkable. Thyroid gland: Unremarkable. Pleura: No effusion or pneumothorax. Heart: The heart is not dilated. Mild coronary artery calcification is present. No pericardial effusion. Aorta: Thoracic aorta non-dilated. Atherosclerotic calcification is present. Upper abdomen: Unremarkable. Lymph nodes: Within normal limits. Soft tissues: Unremarkable. Bones:Within normal limits for the patient's age. IMPRESSION: Stable left lower lobe pulmonary nodule. No new pulmonary nodules are present. Follow-up examination in 6-12 months is recommended. RADIATION DOSE DELIVERED: 36.71mGy.cm Total DLP 36.71mGy.cm Total DLP DATA REPOSITORY: All CT scans at this facility are submitted to the National Radiology Data Registry (NRDR) Dose Index Registry (DIR) with the [employer] ([employer]). RADIATION OPTIMIZATION: All CT scans at this facility use at least one of these dose optimization techniques: automated exposure control; mA and/or kV adjustment per patient size (includes targeted exams where dose is matched to clinical indication); or iterative reconstruction.
== END ==
LOC: DI 01:31
PROVIDERS: PCP Student in an Organized Health Care Education/Training Program; Visit Provider Student in an Organized Health Care Education/Training Program
DX: R91.8 Other nonspecific abnormal finding of lung field (principal); F17.210 Nicotine dependence, cigarettes, uncomplicated
CPT/HCPCS: 71250

== ENCOUNTER → 2025-04-30 09:29 | Outpatient (BNVA) | payer MEDICARE, OTHER, SELFPAY | PROVIDERS: PCP Student in an Organized Health Care Education/Training Program; Referring Provider Student in an Organized Health Care Education/Training Program; Visit Provider Physician Assistant Surgical | DX: J44.89 Other specified chronic obstructive pulmonary disease (principal); J18.8 Other pneumonia, unspecified organism; J45.909 Unspecified asthma, uncomplicated; R91.8 Other nonspecific abnormal finding of lung field; Z87.891 Personal history of nicotine dependence | CPT/HCPCS: 99214 ==

== ENCOUNTER 2025-05-02 12:41 | Outpatient (REF) | payer MEDICARE, OTHER, SELFPAY ==
[2025-05-02 17:24] LABS: ALT 24 U/L (10-49); AST 24 U/L (<34); Albumin 4.3 g/dL (3.2-5.0); Alkaline Phosphatase 49 U/L (46-116); Anion Gap 8.9 mmol/L (3-11); BUN 20 mg/dL (9-23); Bilirubin, Total 0.6 mg/dL (0.2-1.2); CO2 25.0 mmol/L (20.0-31.0); Calcium 9.2 mg/dL (8.3-10.6); Chloride 96 mmol/L (98-107); Glucose 97 mg/dL (74-106); Potassium 4.3 mmol/L (3.5-5.1); Sodium 130 mmol/L (136-145); Total Protein 7.4 g/dL (5.7-8.2)
== END 2025-05-02 12:42 | disposition home or self-care (01) ==
LOC: NCHCN 12:41
PROVIDERS: PCP Student in an Organized Health Care Education/Training Program; Visit Provider Student in an Organized Health Care Education/Training Program
DX: I10 Essential (primary) hypertension (principal)
CPT/HCPCS: 80053

== ENCOUNTER 2025-05-14 00:23 | Outpatient (CLI) | payer MEDICARE, OTHER, SELFPAY ==
[2025-05-14 12:56] LABS: Anion Gap 8.8 mmol/L (3-11); BUN 23 mg/dL (9-23); CO2 27.9 mmol/L (20.0-31.0); Calcium 9.4 mg/dL (8.3-10.6); Chloride 99 mmol/L (98-107); Glucose 77 mg/dL (74-106); Potassium 4.0 mmol/L (3.5-5.1); Sodium 136 mmol/L (136-145)
== END 2025-05-14 00:24 | disposition home or self-care (01) ==
LOC: LBO 00:23
PROVIDERS: PCP Student in an Organized Health Care Education/Training Program; Visit Provider Student in an Organized Health Care Education/Training Program
DX: I10 Essential (primary) hypertension (principal)
CPT/HCPCS: 36415; 80048